=== PATIENT | male | born 1960 | race Asian ===

== ENCOUNTER 2016-11-30 11:54 | Inpatient (IN) | payer MEDICARE, MEDICAID ==
[~2016-11-30] VITALS: Ht 180.3 cm; Wt 79.5 kg
[2016-11-30 12:14] VITALS: Ht 180.3 cm; Wt 79.5 kg
[2016-11-30] MEDS ORDERED: VANCOMYCIN 1 GM (PMX) 250 ML IVPB STA (12:38)
[2016-11-30] MEDS ORDERED: ACETAMINOPHEN 325 MG TAB PO STA (12:38)
[2016-11-30] MEDS ORDERED: CEFEPIME 2GM/50 ML (PMX) 50 ML IVPB STA (12:38)
[2016-11-30] MEDS ORDERED: SODIUM CHLORIDE 0.9% 1L BAG IV* STA (12:38)
[2016-11-30] MEDS ORDERED: ALBU8.5H3 INH (12:56)
[2016-11-30] MEDS ORDERED: D-ME473S2 PO (12:56)
[2016-11-30] MEDS ORDERED: AZIT250T6 PO (12:57)
[2016-11-30] MEDS ORDERED: LENA2.5C PO (12:59)
[2016-11-30] MEDS ORDERED: FLUT16SP17 NASAL (13:00)
[2016-11-30 13:16] LABS: ADD SCAN DIFF NO
[2016-11-30] MEDS ORDERED: morphine 4 MG/ML VIAL IV STA (13:22)
[2016-11-30 13:23] LABS: HEMATOCRIT 45.5 % (42.0-52.0); HEMOGLOBIN 15.5 g/dl (14.0-18.0); MEAN CORPUSCULAR HEMOGLOBIN 33.5 pg (29.0-33.0); MEAN CORPUSCULAR HGB CONC 34.1 g/dl (32.0-37.0); MEAN CORPUSCULAR VOLUME 98.5 fl (82.0-101.0); MEAN PLATELET VOLUME 9.7 fl (7.4-10.4); PLATELET COUNT 236 10^3/UL (140-415); RED BLOOD COUNT 4.62 10^6/ul (4.70-6.10); RED CELL DISTRIBUTION WIDTH 12.8 % (11.5-14.5); WHITE BLOOD COUNT 6.8 10^3/ul (4.8-10.8)
[2016-11-30 13:24] LABS: AADO2 Arterial 50.5 mmHg (7.0-24.0); Allen Test ACCEPTAB; Arterial Base Excess -1.4 mmol/L (-3.0-3); Arterial COHb 0.4 % (0.0-3.0); Arterial Fraction of Oxyhgb 92.3 % (93.0-99.0); Arterial HCO3 21.4 mmol/L (22.0-26.0); Arterial MetHb 0.3 % (0.0-1.5); Arterial Total Hemglobin 15.3 g/dl (12.0-18.0); MODE ROOM AIR
[2016-11-30 13:31] LABS: ALBUMIN 4.7 g/dl (3.3-4.9); CHLORIDE 97 mmol/L (97-110)
[2016-11-30 13:32] LABS: POTASSIUM 3.8 mmol/L (3.5-5.1); SODIUM 137 mmol/L (135-144)
[2016-11-30 13:34] LABS: ALBUMIN/GLOBULIN RATIO 1.11; ALKALINE PHOSPHATASE 77 IU/L (42-121); ANION GAP 17 (8-16); ASPARTATE AMINO TRANSFERASE 47 IU/L (15-46); BILIRUBIN,INDIRECT 1.2 mg/dl (0-1.1); BILIRUBIN,TOTAL 1.2 mg/dl (0.2-1.3); BLOOD UREA NITROGEN 9 mg/dl (7-20); CARBON DIOXIDE 27 mmol/L (21-31); CREATININE 1.15 mg/dl (0.61-1.24); GLUCOSE 100 mg/dl (70-220); TOTAL PROTEIN 8.9 g/dl (6.1-8.1)
[2016-11-30 13:35] LABS: ALANINE AMINOTRANSFERASE 73 IU/L (13-69); CALCIUM 9.4 mg/dl (8.4-10.2)
[2016-11-30] MEDS ORDERED: ALBUTEROL 0.083% (NEB) 2.5 MG/3 ML AMP HHN STA ×2 (13:36→18:25)
[2016-11-30 13:38] LABS: INR 1.03; PARTIAL THROMBOPLASTIN TIME 30.8 Sec (25.0-35.0); PROTIME 13.5 Sec (12.2-14.2); PT RATIO 1.1
[2016-11-30 14:11] LABS: TROPONIN-I < 0.012 ng/ml (0.00-0.12)
[2016-11-30] MEDS ORDERED: SOD CHLORIDE 0.9% 100 ML ONE (14:15)
[2016-11-30] MEDS ORDERED: IODIXANOL LOCM 100 ML BTL ONE (14:15)
--- NOTE | 2016-11-30 14:17 | RADRPT ---
PROCEDURE: XR Chest. CLINICAL INDICATION: Cough TECHNIQUE: Chest AP portable. COMPARISON: No comparison available. FINDINGS: The mediastinal structures are unremarkable. The heart is normal in size and configuration. The pu lmonary vascularity is normal. There is mild bibasilar subsegmental atelectasis. No consolidation is identified. The pleural spaces are unremarkable. The axial skeleton is unremarkable. IMPRESSION: Mild bibasilar subsegmental atelectasis No consolidation or failure identified RPTAT: DB .Zac Diaz MD, MD Date Time Electronically viewed and signed by .Zac Diaz MD, on 11/30/2016 14:16 .B/
[2016-11-30 14:28] LABS: BASOPHIL # 0.1 10^3/ul (0.0-0.1); EOSINOPHILS # 0.1 10^3/ul (0.0-0.5); LYMPHOCYTES # 1.8 10^3/ul (0.8-2.9); MONOCYTE # 0.6 10^3/ul (0.3-0.9); NEUTROPHIL # 3.9 10^3/ul (1.6-7.5)
--- NOTE | 2016-11-30 14:36 | RADRPT ---
PROCEDURE: CTA Chest with contrast and with 3-D reconstructions CLINICAL INDICATION: eval for PE TECHNIQUE: The study was performed utilizing multidetector CT scanner. Direct spiral axial section s were obtained from the thoracic inlet to the upper abdomen with the use of intravenous contrast ma terial. Sagittal, coronal and 3-D reformations were obtained. The images were reviewed on a PACS wor kstation. DLP 586.30 mGycm CTDIvol 49.29, 15.95 mGy COMPARISON: No prior studies are available for comparison. FINDINGS: There are no pulmonary emboli. The lungs are clear. There is no pleural fluid. There is no pneumothorax. Heart size is within normal limits. There is no pericardial fluid. The aorta is within normal limi ts. There are no enlarged axillary or mediastinal lymph nodes. The visualized portions of the upper abdomen are unremarkable. Osseous and soft tissue structures are within normal limits. IMPRESSION: No CT evidence for pulmonary embolus. Clear lungs. RPTAT: EE Physician Eugenia Date Time Electronically viewed and signed by Physician Eugenia on 11/30/2016 14:36 /
[2016-11-30] MEDS ORDERED: ONDANSETRON 4 MG INJ IV PRN (15:00)
--- NOTE | 2016-11-30 15:33 | ERA ---
ER Documentation Chief Complaint Date/Time DATE: 11/30/16 TIME: 15:24 Chief Complaint Pt with fever, body ache, cough x 6 days. Hx of bone marrow CA. HPI 56-year-old male with a history of multiple myeloma sent by his primary care doctor, Dr. Mensah, for further evaluation, treatment and admission. Patient has had 6 days of generalized body aches, cough, shortness of breath, and generalized fatigue. He denies any associated chest pain. He has had fevers and chills that he has noticed for the past 2 days. He states he gets treatment for maintenance of his multiple myeloma every month. He denies any abdominal pain, diarrhea, vomiting, or dysuria. ROS All systems reviewed and are negative except as per history of present illness. Medications Home Meds Reported Medications Fluticasone Propionate* (Fluticasone Propionate* Nasal) 50 Mcg/Mumford - 16 Gm Mumford.susp, 1 SPRAY NASAL BID, #1 BOTTLE TO EACH NOSTRIL 11/30/16 Lenalidomide (REVLIMID) 2.5 Mg Capsule, 5 MG PO DAILY FOR 21 DAYS, CAP 11/30/16 Azithromycin* (Azithromycin*) 250 Mg Tablet, 250 MG PO DAILY, #4 TAB PER PT STARTED TX ON 11-28-16 11/30/16 Dextromethorphan Hb-Promethazine Hcl* (Promethazine DM* Syrup) 473 Ml Syrup, 5 ML PO Q6 Y for COUGH, ML 11/30/16 Albuterol Sulfate* (Proair HFA*) 8.5 Gm Hfa.aer.ad, 2 PUFF INH Q6H Y for WHEEZING AND SOB, #1 INHALER 11/30/16 Allergies Allergies: Coded Allergies: No Known Allergy (Unverified , 11/30/16) PMhx/Soc Medical and Surgical Hx: pt denies Surgical Hx Hx Miscellaneous Medical Probl: Yes (Multiple myeloma) Hx Alcohol Use: No Hx Substance Use: No Hx Tobacco Use: No Smoking Status: Current every day smoker FmHx Family History: No diabetes Physical Exam Vitals Vital Signs Date Time Temp Pulse Resp B/P Pulse Ox O2 Delivery O2 Flow Rate FiO2 11/30/16 13:54 95 21 11/30/16 13:18 115 24 142/99 98 Room Air 11/30/16 12:14 102.8 129 20 137/84 93 Physical Exam Const: Frequently coughing on exam, nontoxic appearing, well-developed and well- nourished Head: Atraumatic Eyes: Normal Conjunctiva, PERRLA, EOMI, no scleral icterus ENT: Normal External Ears, Nose and Mouth. Dry oral mucosa Neck: Full range of motion.. No JVD. No meningismus. Resp: Clear to auscultation bilaterally with diminished breath sounds at the bases, right greater than left Cardio: Tachycardia with regular rhythm, no murmurs, rubs, gallops Abd: Soft, non tender, non distended. Normal bowel sounds Skin: No petechiae or rashes, no ecchymoses Back: No midline or flank tenderness Ext: No cyanosis, or edema. Diffuse tenderness to palpation of extremities. Neur: Awake and alert and oriented 3, strength and sensations intact in all 4 extremities, cranial nerves intact Psych: Normal Mood and Affect Result Diagram: 11/30/16 1255 11/30/16 1255 Results 24 hrs Laboratory Tests Test 11/30/16 12:38 11/30/16 12:55 Blood Gas Specimen Source Blood arterial Arterial Blood Date Drawn 11/30/2016 1:15:55 PM Arterial Blood pH (Temp corrected) 7.455 Arterial Blood pCO2 (Temp correct) 31.1mmhg Arterial Blood pO2 (Temp corrected) 62.0mmHG Arterial Blood HCO3 21.4mmol/L Arterial Blood Base Excess -1.4mmol/L Arterial Blood Oxygen Saturation 93.0mmHG Prem Test ACCEPTAB Arterial Blood Gas Puncture Site Left Radial Arterial Blood Carboxyhemoglobin 0.4% Arterial Blood Methemoglobin 0.3% Blood Gas A-a O2 Differential 50.5mmHg Oxyhemoglobin Percent 92.3% Total Hemoglobin 15.3g/dl Blood Gas Temperature 37.0C Blood Gas Modality ROOM AIR FiO2 21.0% Blood Gas Notified Whom JLD Blood Gas Notified Time 11/30/2016 1:24:45 PM White Blood Count 6.810^3/ul Red Blood Count 4.6210^6/ul Hemoglobin 15.5g/dl Hematocrit 45.5% Mean Corpuscular Volume 98.5fl Mean Corpuscular Hemoglobin 33.5pg Mean Corpuscular Hemoglobin Concent 34.1g/dl Red Cell Distribution Width 12.8% Platelet Count 96906^3/UL Mean Platelet Volume 9.7fl Neutrophils % 58.0% Band Neutrophils % 4.0% Lymphocytes % 26.0% Monocytes % 9.0% Eosinophils % 1.0% Basophils % 2.0% Nucleated Red Blood Cells % /100WBC Neutrophils # 3.910^3/ul Lymphocytes # 1.810^3/ul Monocytes # 0.610^3/ul Eosinophils # 0.110^3/ul Basophils # 0.110^3/ul Nucleated Red Blood Cells # 10^3/ul Prothrombin Time 13.5Sec Prothrombin Time Ratio 1.1 INR International Normalized Ratio 1.03 Activated Partial Thromboplast Time 30.8Sec Sodium Level 137mmol/L Potassium Level 3.8mmol/L Chloride Level 97mmol/L Carbon Dioxide Level 27mmol/L Anion Gap 17 Blood Urea Nitrogen 9mg/dl Creatinine 1.15mg/dl Glucose Level 100mg/dl Lactic Acid Level 1.4mmol/L Calcium Level 9.4mg/dl Total Bilirubin 1.2mg/dl Direct Bilirubin 0.00mg/dl Indirect Bilirubin 1.2mg/dl Aspartate Amino Transf (AST/SGOT) 47IU/L Alanine Aminotransferase (ALT/SGPT) 73IU/L Alkaline Phosphatase 77IU/L Troponin I < 0.012ng/ml Total Protein 8.9g/dl Albumin 4.7g/dl Globulin 4.20g/dl Albumin/Globulin Ratio 1.11 Current Medications Medications (Trade) Dose Ordered Sig/Greg Route PRN Reason Start Time Stop Time Status Last Admin Dose Admin Sodium Chloride (NS) 2,810 ml BOLUS OVER 2 HOURS STAT IV* 11/30/16 12:38 11/30/16 12:40 DC 11/30/16 13:07 Acetaminophen 1000 mg 1,000 mg ONCE STAT PO 11/30/16 12:38 11/30/16 12:40 DC 11/30/16 13:07 Vancomycin HCl 250 ml @ 125 mls/hr ONCE STAT IVPB 11/30/16 12:38 11/30/16 14:37 DC 11/30/16 13:17 Cefepime HCl (Maxipime 2gm/50 ml (Pmx)) 50 ml @ 100 mls/hr ONCE STAT IVPB 11/30/16 12:38 11/30/16 13:07 DC 11/30/16 13:10 Morphine Sulfate (morphine) 4 mg ONCE STAT IV 11/30/16 13:22 11/30/16 13:23 DC 11/30/16 13:28 Albuterol (Proventil 0.083% (Neb)) 5 mg ONCE STAT HHN 11/30/16 13:36 11/30/16 13:37 DC 11/30/16 13:52 IV Flush 10 ml 10 ml STK-MED ONCE .ROUTE 11/30/16 14:15 11/30/16 14:16 DC 11/30/16 14:39 Sodium Chloride (NS) 100 ml @ ud STK-MED ONCE .ROUTE 11/30/16 14:15 11/30/16 14:16 DC 11/30/16 14:39 Iodixanol (Visipaque Locm) 100 ml STK-MED ONCE .ROUTE 11/30/16 14:15 11/30/16 14:16 DC 11/30/16 14:39 Ondansetron HCl (Zofran Inj) 4 mg BRIDGE ORDER PRN IV NAUSEA AND/OR VOMITING 11/30/16 15:00 12/01/16 14:59 Acetaminophen (Tylenol Tab) 650 mg ER BRIDGE PRN PO MILD PAIN/FEVER 11/30/16 15:00 12/01/16 14:59 Procedures/MDM EKG: Rate/Rhythm: Sinus tachycardia at 111 bpm QRS, ST, T-waves: No changes consistent w/ acute ischemia Impression: No evidence of ischemia or arrhythmia Chest x-ray shows bibasilar atelectasis without evidence of pneumonia or heart failure CT angiogram chest does not show any evidence of pulmonary embolism or other acute abnormalities Labs showed no significant abnormalities, urinalysis pending. ABG showed mild alkalosis with hypoxemia and increased A-a gradient. MDM: Patient is presenting with flulike symptoms. Vitals were notable for fever and tachycardia. IV fluids and broad-spectrum antibiotics, vancomycin and cefepime were started. There is no evidence of pulmonary embolism or pneumonia on his imaging. Source of infection is unclear at this time. He most likely has a bacterial bronchitis with minimal wheezing on reexamination. Albuterol 5 mg med neb treatment was given. Patient's infectious symptoms have not stabilized and the patient is at risk of rapid decompensation. The patient will be admitted for careful hydration, antibiotic therapy, and infectious source control. Severe Sepsis Assessment: Infectious Source: Bronchitis End organ damage indicated by: Hypoxemia Severe Sepsis Managment: Blood Cultures X 2 before broad spectrum antibiotics initiated within 3 hours of recognition. 30 ml/kg NS bolus Completed Initial Lactate: normal Repeat Lactate not indicated as initial < 2.0 Critical Care: Time: 35 minutes Treatments/Evaluations: Emergent fluid management, while maintaining close respiratory support. Immediate broad spectrum antibiotic therapy. Simultaneous assessment for possible sources in order to direct therapy. Consideration for invasive and chemical support to prevent respiratory or cardiac collapse. Septic Shock Assessment (1 hour post 30 ml/kg fluid bolus): Hypotension (SBP < 90 or 40 mmHg drop, MAP < 65): No Lactic acid > 4.0 No Accepting Care Team: Current data and ongoing care discussed. Time: Time of admission Primary Provider: Dr. Mensah Consulting: None Outstanding Data: Blood, UA, urinalysis and urine cultures Departure Diagnosis: Primary Impression: Influenza-like symptoms Additional Impressions: Hypoxemia Sepsis Qualified Code: A41.9 - Sepsis, due to unspecified organism Condition: Serious MARY RILEY MD November 30, 2016 15:33
[2016-11-30 16:03] LABS: ADD UMIC YES; URINE BILIRUBIN (Dip) NEGATIVE (NEGATIVE); URINE BLOOD (Dip) TRACE (NEGATIVE); URINE COLOR LT. YELLOW (YELLOW); URINE GLUCOSE (Dip) NEGATIVE (NEGATIVE); URINE KETONES (Dip) NEGATIVE (NEGATIVE); URINE LEUKOCYTE ESTERASE (Dip) NEGATIVE (NEGATIVE); URINE NITRITE (Dip) NEGATIVE (NEGATIVE); URINE TOTAL PROTEIN (Dip) NEGATIVE (NEGATIVE); URINE UROBILINOGEN (Dip) 0.2 E.U./dL (0.1-1.0)
[2016-11-30 16:11] LABS: SQUAMOUS EPITHELIAL CELL,UR RARE; URINE RBCS 0-2 /HPF (0)
[2016-11-30] MEDS: ACETAMINOPHEN 325 MG TAB PO PRN ×2 (17:27→19:47)
[2016-11-30] MEDS ORDERED: KETOROLAC 30 MG INJ IV STA (19:54)
[2016-11-30] MEDS ORDERED: METOCLOPRAMIDE 10 MG INJ IV ONE (20:00)
[2016-11-30] MEDS ORDERED: LORAZEPAM 2 MG INJ IV ONE (20:00)
[2016-11-30 21:05] VITALS: PULSE 116; TEMP 98.5
[2016-11-30 22:24] VITALS: BP 116/70; RESP 18
[2016-11-30] MEDS ORDERED: KETOROLAC 30 MG INJ IV PRN (22:30)
[2016-12-01] MEDS: GUAIFENESIN/DM 5ML CUP PO PRN (02:23)
[2016-12-01] MEDS: LEVALBUTEROL (NEB) 0.63 MG/3 ML AMP HHN PRN (02:47)
--- NOTE | 2016-12-01 03:44 | HP ---
DATE OF ADMISSION: 11/30/2016 CHIEF COMPLAINT: Cough, fever and shortness of breath. HISTORY OF PRESENT ILLNESS: The patient is a 56-year-old gentleman with a history of multiple myelo ma status post stem cell transplant at [facility] more than a year ago currently on Revlimid and is being followed by Dr. Cole as an outpatient. The patient also is status post radiation therapy at [facility] back in 2013. The patient is also status post systemic chemotherapy prior to radiation therapy for lower back pain. The patient came to ER because of cough, fever, and shortne ss of breath for the last 1 week. The patient did [facility] the day before and was given Zithromax and ProAir metered dose inhaler as well as cough medicine. The pat ient, however, continued to get sicker. The patient reported that he was getting more short of abelardo th. The patient did not have any chest pain. No reported sore throat. No reported abdominal pain, no reported vomiting or diarrhea. The patient did have a headache. No reported photophobia. No r eported any focal weakness. No reported vomiting or diarrhea. The patient reported his temperature at home was 103. The patient also felt generalized weakness. No reported dysuria or hematuria. T he patient's symptoms had been getting worse since the onset approximately 5 to 7 days ago. The pat ient denied back pain. No reported skin rash. No reported eyes or ear pain. No reported focal wea kness unremarkable. EMERGENCY ROOM COURSE: The patient was seen in the ER by Dr. Hu. The patient did have a tem perature of 102.8 upon arrival to ER with heart rate of 129. The patient, however, did not have any bandemia or leukocytosis and lactic acid level was 1.4. The patient had a CT chest pulmonary angio gram which was negative for PE or any acute pneumonia. The patient was diagnosed with acute bronchi tis and is being admitted for further evaluation and management. PAST MEDICAL HISTORY/PAST SURGICAL HISTORY: As stated above. SOCIAL HISTORY: No smoking or any significant alcohol abuse. No history of drug abuse. FAMILY HISTORY: Negative for the patient's condition. MEDICATIONS: The patient prior to admission was on Revlimid, azithromycin, cough medication recentl y as well was started on Fluticasone nasal spray and ProAir metered dose inhaler. PHYSICAL EXAMINATION: GENERAL: The patient is conscious, awake, alert. VITAL SIGNS: Upon arrival, temperature 102.8, pulse 109, respirations 20, blood pressure 137/84, O2 saturation 93% on room air. HEENT: Atraumatic, normocephalic. Conjunctivae and lids normal. Extraocular movements intact. Or opharynx clear. NECK: Supple. No mass or thyromegaly. CHEST: Fairly clear. No use of accessory muscles. CARDIOVASCULAR: Regular rate and rhythm. S1, S2 normal. Sinus tachycardia. ABDOMEN: Soft, nontender. No palpable mass. EXTREMITIES: No leg edema, no clubbing or cyanosis. SKIN: Without acute rash or ulcer. NEUROLOGIC: The patient is awake, alert, fairly oriented with no gross focal deficit. LYMPHATICS: Negative in neck and axilla. PSYCHIATRIC: No anxiety or depression. LABORATORY DATA: Sodium 137, potassium 3.8, BUN 9, creatinine 1.1, glucose 100, calcium 9.4, biliru bin 1.2, mainly indirect, AST 47, ALT 73, albumin 4.7. WBC 6.8, hemoglobin 15.5. IMPRESSION: 1. Acute sepsis due to acute bronchitis viral versus bacterial. The patient currently has a nonpro ductive cough and does have myalgia and headache. Due to immunocompromised state, will empirically start him on IV Rocephin and Zithromax. ID consult from Dr. Brock has been requested. The patien t will also be given breathing treatment and gastrointestinal prophylaxis with Pepcid and will be co ntinued on Revlimid once more information is available about dosage. The patient was started on Juany enox for DVT prophylaxis and Pepcid for GI prophylaxis. We will also use Toradol for myalgia and he adache. Blood culture and urine culture have been sent from ER. The patient in the ER in fact rece ived IV vancomycin and cefepime. 2. Multiple myeloma. Will continue Revlimid once more information is available. The patient has b een requested to bring medication at home. I spoke with Dr. Neelam Cole who has been following him from oncology standpoint as an outpatient. The patient in the ER did have blood gases done which r evealed pH of 7.45, pCO2 31.1 and pO2 of 62 indicating hypoxemia most likely related to sepsis due t o acute bronchitis. 3. Mildly elevated liver enzymes and bilirubin, will continue to monitor at this time. The patient does not have any GI symptom. I would repeat comprehensive metabolic panel tomorrow and if patient has worsening of his liver enzymes. We will obtain a GI consultation also. The plan of care discu ssed with the nursing staff and the ER physician, Dr. Sharon Hu. Dictated By: BEV KOEHLER/BASILIO Conf#: [id number] DID#: [id number]
[2016-12-01 05:43] LABS: ADD SCAN DIFF NO
[2016-12-01 06:18] LABS: BASOPHILS % 0.4 % (0.0-2.0); EOSINOPHILS % 0.2 % (0.0-7.0); LYMPHOCYTES # 1.1 10^3/ul (0.8-2.9); LYMPHOCYTES % 21.6 % (15.0-51.0); MEAN CORPUSCULAR HEMOGLOBIN 32.5 pg (29.0-33.0); MEAN CORPUSCULAR HGB CONC 32.5 g/dl (32.0-37.0); MEAN PLATELET VOLUME 9.9 fl (7.4-10.4); MONOCYTE # 0.4 10^3/ul (0.3-0.9); MONOCYTES % 8.5 % (0.0-11.0); NEUTROPHIL # 3.6 10^3/ul (1.6-7.5); NEUTROPHILS % 68.9 % (39.0-77.0); PLATELET COUNT 166 10^3/UL (140-415); RED CELL DISTRIBUTION WIDTH 13.1 % (11.5-14.5); WHITE BLOOD COUNT 5.2 10^3/ul (4.8-10.8)
[2016-12-01 06:24] LABS: ALBUMIN 3.6 g/dl (3.3-4.9); POTASSIUM 3.9 mmol/L (3.5-5.1)
[2016-12-01 06:26] LABS: ALBUMIN/GLOBULIN RATIO 1.05; BILIRUBIN,INDIRECT 1.3 mg/dl (0-1.1); BILIRUBIN,TOTAL 1.3 mg/dl (0.2-1.3); CREATININE 0.97 mg/dl (0.61-1.24)
[2016-12-01 06:27] LABS: CALCIUM 8.2 mg/dl (8.4-10.2)
[2016-12-01 07:30] VITALS: BP 134/84; RESP 18
[2016-12-01] MEDS ORDERED: AZITHROMYCIN 250 MG TAB PO SCH (09:00)
[2016-12-01] MEDS: ENOXAPARIN 40 MG/0.4 ML SYG SC SCH (09:16)
[2016-12-01] MEDS: ACETAMINOPHEN 500 MG TAB PO PRN ×2 (09:17→14:55)
[2016-12-01] MEDS: FAMOTIDINE 20 MG TAB PO SCH ×2 (09:18→21:45)
[2016-12-01] MEDS ORDERED: CEFTRIAXONE 1 GM/50 ML (PMX) 50 ML IVPB SCH (10:00)
--- NOTE | 2016-12-01 13:46 | CONS ---
Date/Time of Note Date/Time of Note DATE: 12/01/16 TIME: 13:37 Assessment/Plan Assessment/Plan Chief Complaint/Hosp Course assessment/impression - sepsis due to bronchitis or superimposed bacterial pneumonia - sick contact prior to the onset of illness suggests viral origin - STEIN possibly secondary to viral syndrome - immunocompromised state due to MM plus lenalidomide - MM s/p stem cell transplant at [facility] s/p chemotherapy, and radiation therapy for the lower back. recommendations - ordered: nasopharyngeal swab for influenza PCR, respiratory virus PCR, respiratory culture, legionella antigen, mycoplasma serology TB screen, crypto antigen, cocci serology - monitor STEIN - I recommend: IV vancomycin, cefepime, levofloxacin, and oseltamivir. Oseltamivir to continue until influenza is ruled out by PCR (rapid test was negative) - droplet precautions until respiratory viruses are ruled out by PCR management d/w Pt, his and RN thank you Problems: Consultation Date/Type/Reason Admit Date/Time November 30, 2016 at 14:40 Date of Consultation: December 01, 2016 Type of Consultation: ID Reason for Consultation sepsis Hx of Present Illness This is a 56 yo male with MM s/p stem cell transplant at [facility] s/p chemotherapy, and radiation therapy for the lower back. Pt is currently on lenalidomide. Several days ago Pt developed sudden onset myalgia, productive cough and temp as high as 103F. Pt was given a trial of azithromcyin without improvement. As a result, Pt was advised to go to ER. His chest CT and CXR did not show PE or infiltrate. Pt was started on empiric ceftriaxone and zithromycin. Pt was born and raised in [place]. He does not recall TB test. Pt received influenza vaccine in 2016. Pt admits sick contact with a family member who had an influenza-like illness prior to the onset of his current illness. Dr. Mensah requested ID consultation on this Pt. Constitutional: febrile, poor po Eyes: no complaints ENT: no complaints Respiratory: cough, shortness of breath, sputum, No pleuritic pain, No wheezing Cardiovascular: no complaints Gastrointestinal: no complaints Genitourinary: no complaints Musculoskeletal: bone/joint pain Skin: no complaints Neurologic: headache Endocrine: no complaints Lymphatic: no complaints Past Medical History Medical History: other (MM) Social History Alcohol Use: none Smoking Status: Unknown if ever smoked Drug Use: none Exam/Review of Systems Vital Signs Vitals Vital Signs Date Time Temp Pulse Resp B/P Pulse Ox O2 Delivery O2 Flow Rate FiO2 12/01/16 09:20 100.4 12/01/16 09:04 2.0 12/01/16 07:30 102 18 134/84 97 12/01/16 02:48 Nasal Cannula 11/30/16 18:53 21 Intake and Output 11/30/16 11/30/16 12/01/16 15:00 23:00 07:00 Intake Total 580 ml Balance 580 ml Exam Constitutional: distress Psych: nl mood/affect, no complaints Head: atraumatic, normocephalic Eyes: nl conjunctiva, nl lids ENMT: nl external ears & nose, nl nasal mucosa & septum Neck: non-tender, supple Respiratory: clear to auscultation, normal air movement Cardiovascular: nl pulses, regular rate and rhythm Gastrointestinal: non-tender, soft Musculoskeletal: nl extremities to inspection Extremities: normal pulses Neurological: ACCOUNT RECEIVABLE ASSOCIATE II-XII intact, nl mental status, nl speech, nl strength Skin: nl turgor Results Result Diagram: 12/01/16 04512/01/16 045 Results 24 hrs Laboratory Tests Test 11/30/16 15:26 11/30/16 16:45 11/30/16 18:45 12/01/16 04:51 Urine Color LT. YELLOW Urine Clarity CLEAR Urine pH 6.0 Urine Specific [place] <=1.005 L Urine Ketones NEGATIVE Urine Nitrite NEGATIVE Urine Bilirubin NEGATIVE Urine Urobilinogen 0.2 E.U./dL Urine Leukocyte Esterase NEGATIVE Urine Microscopic RBC 0-2 Urine Microscopic WBC 0-2 Urine Squamous Epithelial Cells RARE Urine Hemoglobin TRACE Urine Glucose NEGATIVE Urine Total Protein NEGATIVE Lactic Acid Level 1.5 1.6 White Blood Count 5.2 # Red Blood Count 4.00 L Hemoglobin 13.0 L Hematocrit 40.0 L Mean Corpuscular Volume 100.0 Mean Corpuscular Hemoglobin 32.5 Mean Corpuscular Hemoglobin Concent 32.5 Red Cell Distribution Width 13.1 Platelet Count 166 # Mean Platelet Volume 9.9 Neutrophils % 68.9 Lymphocytes % 21.6 Monocytes % 8.5 Eosinophils % 0.2 Basophils % 0.4 Nucleated Red Blood Cells % 0.0 Neutrophils # 3.6 Lymphocytes # 1.1 Monocytes # 0.4 Eosinophils # 0.0 Basophils # 0.0 Nucleated Red Blood Cells # 0.0 Sodium Level 139 Potassium Level 3.9 Chloride Level 103 Carbon Dioxide Level 26 Anion Gap 14 Blood Urea Nitrogen 10 Creatinine 0.97 Glucose Level 138 Calcium Level 8.2 L Total Bilirubin 1.3 Direct Bilirubin 0.00 Indirect Bilirubin 1.3 H Aspartate Amino Transf (AST/SGOT) 31 Alanine Aminotransferase (ALT/SGPT) 58 Alkaline Phosphatase 51 Total Protein 7.0 # Albumin 3.6 # Globulin 3.40 H Albumin/Globulin Ratio 1.05 Medications Medications Current Medications Ceftriaxone Sodium (Rocephin) 50 ml @ 100 mls/hr Q24H IVPB Last administered on 12/01/16 09:18; Admin Dose 100 MLS/HR; Start 12/01/16 at 10:00 Azithromycin (Zithromax) 500 mg DAILY PO Last administered on 12/01/16 09:18; Admin Dose 500 MG; Start 12/01/16 at 09:00 Acetaminophen (Tylenol Tab) 500 mg Q6H PRN PO PAIN AND OR ELEVATED TEMP Last administered on 12/01/16 09:17; Admin Dose 500 MG; Start 11/30/16 at 22:30 Ketorolac Tromethamine (Toradol) 30 mg Q6H PRN IV PAIN; Start 11/30/16 at 22:30 ; Stop 12/03/16 at 22:29 Famotidine (Pepcid) 20 mg BID PO Last administered on 12/01/16 09:18; Admin Dose 20 MG; Start 12/01/16 at 09:00 Enoxaparin Sodium (Lovenox) 40 mg DAILY SC Last administered on 12/01/16 09:16 ; Admin Dose 40 MG; Start 12/01/16 at 09:00 Guaifenesin/ Dextromethorphan (Robitussin Dm Liquid Cup) 5 ml Q4H PRN PO COUGH Last administered on 12/01/16 02:23; Admin Dose 5 ML; Start 11/30/16 at 22:30 Patient Own Medication 1 ea DAILY PO ; Start 12/01/16 at 14:30; Stop 12/11/16 at 09:01 SILVIANO AREVALO M.D. December 01, 2016 13:46
[2016-12-01] MEDS ORDERED: VANCOMYCIN IV PER PHARMACY XX SCH (14:00)
[2016-12-01] MEDS: LEVOFLOXACIN 500MG/D5W (PMX) 100 ML IVPB SCH (14:27)
[2016-12-01] MEDS: LENALIDOMIDE PO SCH (14:55)
--- NOTE | 2016-12-01 15:14 | CONS ---
Date/Time of Note Date/Time of Note DATE: 12/01/16 TIME: 14:17 Assessment/Plan Assessment/Plan Chief Complaint/Hosp Course 56 yo male with IgG kappa multiple myeloma s/p auto SCT in 04/2014 currently on maintenance Revlimid 5 mg q day who now presents with what appears to be an acute viral illness. Last SPEP done 09/2016 does not reveal evidence of monoclonal gammopathy and [place]/ Lambda light chains were all within normal limits. Pt is now admitted with sepsis secondary to bronchial infection. Patient is immunocompromised from his underlying multiple myeloma. # Sepsis -management per ID. follow up serologies ordered -cont broad spectrum antibiotics / antiviral therapy including IV vancomycin, cefepime, levofloxacin, and oseltamivir # Multiple Myeloma -last myeloma labs drawn 1 month ago did not reveal evidence of active disease -once patient is discharged will redraw the myeloma labs -can hold Revlimid while patient is hospitalized and plan to restart as an outpatient Approximately 40 min were spent at patient's bedside and in coordination of his care Problems: Consultation Date/Type/Reason Admit Date/Time November 30, 2016 at 14:40 Date of Consultation: December 01, 2016 Type of Consultation: hematology Reason for Consultation history of multiple myeloma Referring Provider: BEV SPARKS MD Hx of Present Illness 56 yo male with history of IgG kappa multiple myeloma that was originally diagnosed in [place]. Pt initiated therapy in the [place] in 03/2013 when he received Velcade. Cytoxan, Decadron. Of note he also received radiation to the spine in 2013.He then went on to undergo and autologous stem cell transplant in 04/2014 at [facility] with Dr. Bee. Pt has since been on maintenance Revlimid 5mg q day 21 days on and 7 days off. He was last seen on our office on October 05, 2016 and is currently undergoing treatment with Zometa q 3 mo for bone disease. His last Zometa was given on 10/15/16. He now presents with myalgias, couth and fevers to 103. Thus far there is no evidence of PE nor pneumonia. Pt was started on empiric ceftriaxone and azithromycin. Pt was born and raised in [place]. He does not recall TB test. Pt received influenza vaccine in 2016. Pt does endorse sick contact with a family member prior to the onset of his current illness. Respiratory: cough Gastrointestinal: decreased appetite, nausea Genitourinary: no complaints Musculoskeletal: back pain, bone/joint pain Skin: no complaints Neurologic: no complaints Endocrine: no complaints Past Medical History multiple myeloma spine mets Family History Significant Family History: no pertinent family hx Social History Smoking Status: Never smoker Drug Use: none Exam/Review of Systems Vital Signs Vitals Vital Signs Date Time Temp Pulse Resp B/P Pulse Ox O2 Delivery O2 Flow Rate FiO2 12/01/16 09:20 100.4 12/01/16 09:04 2.0 12/01/16 07:30 102 18 134/84 97 12/01/16 02:48 Nasal Cannula 11/30/16 18:53 21 Intake and Output 11/30/16 11/30/16 12/01/16 15:00 23:00 07:00 Intake Total 580 ml Balance 580 ml Exam Constitutional: alert, oriented Psych: no complaints Head: atraumatic, normocephalic Eyes: nl conjunctiva ENMT: nl external ears & nose Neck: non-tender, supple Respiratory: clear to auscultation, normal air movement Cardiovascular: regular rate and rhythm Gastrointestinal: soft Musculoskeletal: nl extremities to inspection Extremities: calf tenderness Results Result Diagram: 12/01/16 0451 12/01/16 0451 Results 24 hrs Laboratory Tests Test 11/30/16 15:26 11/30/16 16:45 11/30/16 18:45 12/01/16 04:51 Urine Color LT. YELLOW Urine Clarity CLEAR Urine pH 6.0 Urine Specific [place] <=1.005 L Urine Ketones NEGATIVE Urine Nitrite NEGATIVE Urine Bilirubin NEGATIVE Urine Urobilinogen 0.2 E.U./dL Urine Leukocyte Esterase NEGATIVE Urine Microscopic RBC 0-2 Urine Microscopic WBC 0-2 Urine Squamous Epithelial Cells RARE Urine Hemoglobin TRACE Urine Glucose NEGATIVE Urine Total Protein NEGATIVE Lactic Acid Level 1.5 1.6 White Blood Count 5.2 # Red Blood Count 4.00 L Hemoglobin 13.0 L Hematocrit 40.0 L Mean Corpuscular Volume 100.0 Mean Corpuscular Hemoglobin 32.5 Mean Corpuscular Hemoglobin Concent 32.5 Red Cell Distribution Width 13.1 Platelet Count 166 # Mean Platelet Volume 9.9 Neutrophils % 68.9 Lymphocytes % 21.6 Monocytes % 8.5 Eosinophils % 0.2 Basophils % 0.4 Nucleated Red Blood Cells % 0.0 Neutrophils # 3.6 Lymphocytes # 1.1 Monocytes # 0.4 Eosinophils # 0.0 Basophils # 0.0 Nucleated Red Blood Cells # 0.0 Sodium Level 139 Potassium Level 3.9 Chloride Level 103 Carbon Dioxide Level 26 Anion Gap 14 Blood Urea Nitrogen 10 Creatinine 0.97 Glucose Level 138 Calcium Level 8.2 L Total Bilirubin 1.3 Direct Bilirubin 0.00 Indirect Bilirubin 1.3 H Aspartate Amino Transf (AST/SGOT) 31 Alanine Aminotransferase (ALT/SGPT) 58 Alkaline Phosphatase 51 Total Protein 7.0 # Albumin 3.6 # Globulin 3.40 H Albumin/Globulin Ratio 1.05 Medications Medications Current Medications Acetaminophen (Tylenol Tab) 500 mg Q6H PRN PO PAIN AND OR ELEVATED TEMP Last administered on 12/01/16 09:17; Admin Dose 500 MG; Start 11/30/16 at 22:30 Ketorolac Tromethamine (Toradol) 30 mg Q6H PRN IV PAIN; Start 11/30/16 at 22:30 ; Stop 12/03/16 at 22:29 Famotidine (Pepcid) 20 mg BID PO Last administered on 12/01/16 09:18; Admin Dose 20 MG; Start 12/01/16 at 09:00 Enoxaparin Sodium (Lovenox) 40 mg DAILY SC Last administered on 12/01/16 09:16 ; Admin Dose 40 MG; Start 12/01/16 at 09:00 Guaifenesin/ Dextromethorphan (Robitussin Dm Liquid Cup) 5 ml Q4H PRN PO COUGH Last administered on 12/01/16 02:23; Admin Dose 5 ML; Start 11/30/16 at 22:30 Patient Own Medication 1 ea 1 ea DAILY PO ; Start 12/01/16 at 14:30; Stop at 09:01 Cefepime HCl 50 ml @ 100 mls/hr Q12 IVPB ; Start 12/01/16 at 21:00 Levofloxacin/ Dextrose (Levaquin 500mg/ D5W 100 ml (Pmx)) 100 ml @ 100 mls/hr Q24H IVPB ; Start 12/01/16 at 14:00 Oseltamivir Phosphate 75 mg 75 mg BID PO ; Start 12/01/16 at 21:00; Stop 12/06/16 at 20:59 Vancomycin HCl 1.5 gm/Sodium Chloride 250 ml @ 83.333 mls/ hr ONCE ONCE IVPB ; Start 12/01/16 at 16:00; Stop 12/01/16 at 18:59 Vancomycin HCl (Vancocin) 250 ml @ 125 mls/hr Q12H IVPB ; Start 12/02/16 at 04: 00 JENY MCKEON M.D. December 01, 2016 14:30
[2016-12-01] MEDS ORDERED: VANCOMYCIN 1.5 GM in SOD CHLORIDE 0.9% 250 ML IVPB ONE (16:00)
[2016-12-01] MEDS: ASPIRIN (EC) 81 MG TAB PO SCH (18:10)
--- NOTE | 2016-12-01 18:14 | PN ---
Date/Time of Note Date/Time of Note DATE: 12/01/16 TIME: 18:06 Assessment/Plan VTE Prophylaxis VTE Prophylaxis Intervention: SCD's Lines/Catheters IV [facility]ter [facility]from [facility] [place] Assessment/Plan Chief Complaint/Hosp Course Assessment/Plan - Sepsis secondary to bronchitis, continue broad-spectrum antibiotics and and Tamiflu. Dr. Maher is following an infection disease consultation. - Acute bronchitis, continue breathing treatment oxygen supplementation. - Multiple myeloma, s/p stem cell transplant at [facility] s/p chemotherapy, and radiation therapy for the lower back. Patient is followed by Dr. Cole in hematology consultation. Further recommendations based on clinical course. Plan of care discussed with Dr. Mensah. Problems: Subjective 24 Hr Interval Summary Free Text/Dictation Patient's complains of headache, complaints of dry cough, stated that he feels better to compare to condition on admission, continues to have low-grade fever. Exam/Review of Systems Vital Signs Vitals Vital Signs Date Time Temp Pulse Resp B/P Pulse Ox O2 Delivery O2 Flow Rate FiO2 12/01/16 13:00 Simple Mask 2.0 12/01/16 09:50 98.5 12/01/16 07:30 102 18 134/84 97 11/30/16 18:53 21 Intake and Output 11/30/16 11/30/16 12/01/16 15:00 23:00 07:00 Intake Total 580 ml Balance 580 ml Exam Constitutional: alert, oriented Psych: no complaints Head: atraumatic, normocephalic Eyes: nl conjunctiva ENMT: nl external ears & nose Neck: non-tender Respiratory: clear to auscultation, normal air movement Cardiovascular: nl pulses, regular rate and rhythm Gastrointestinal: non-tender, soft Musculoskeletal: nl extremities to inspection Extremities: normal pulses Neurological: [employer] CHEMIST II-XII intact Results Result Diagram: 12/01/16 0451 12/01/16 0451 Results 24 hrs Laboratory Tests Test 11/30/16 18:45 12/01/16 04:51 Lactic Acid Level 1.6 White Blood Count 5.2 # Red Blood Count 4.00 L Hemoglobin 13.0 L Hematocrit 40.0 L Mean Corpuscular Volume 100.0 Mean Corpuscular Hemoglobin 32.5 Mean Corpuscular Hemoglobin Concent 32.5 Red Cell Distribution Width 13.1 Platelet Count 166 # Mean Platelet Volume 9.9 Neutrophils % 68.9 Lymphocytes % 21.6 Monocytes % 8.5 Eosinophils % 0.2 Basophils % 0.4 Nucleated Red Blood Cells % 0.0 Neutrophils # 3.6 Lymphocytes # 1.1 Monocytes # 0.4 Eosinophils # 0.0 Basophils # 0.0 Nucleated Red Blood Cells # 0.0 Sodium Level 139 Potassium Level 3.9 Chloride Level 103 Carbon Dioxide Level 26 Anion Gap 14 Blood Urea Nitrogen 10 Creatinine 0.97 Glucose Level 138 Calcium Level 8.2 L Total Bilirubin 1.3 Direct Bilirubin 0.00 Indirect Bilirubin 1.3 H Aspartate Amino Transf (AST/SGOT) 31 Alanine Aminotransferase (ALT/SGPT) 58 Alkaline Phosphatase 51 Total Protein 7.0 # Albumin 3.6 # Globulin 3.40 H Albumin/Globulin Ratio 1.05 Medications Medications Current Medications Acetaminophen (Tylenol Tab) 500 mg Q6H PRN PO PAIN AND OR ELEVATED TEMP Last administered on 12/01/16 14:55; Admin Dose 500 MG; Start 11/30/16 at 22:30 Ketorolac Tromethamine (Toradol) 30 mg Q6H PRN IV PAIN; Start 11/30/16 at 22:30 ; Stop 12/03/16 at 22:29 Famotidine (Pepcid) 20 mg BID PO Last administered on 12/01/16 09:18; Admin Dose 20 MG; Start 12/01/16 at 09:00 Enoxaparin Sodium (Lovenox) 40 mg DAILY SC Last administered on 12/01/16 09:16 ; Admin Dose 40 MG; Start 12/01/16 at 09:00 Guaifenesin/ Dextromethorphan (Robitussin Dm Liquid Cup) 5 ml Q4H PRN PO COUGH Last administered on 12/01/16 02:23; Admin Dose 5 ML; Start 11/30/16 at 22:30 Patient Own Medication 1 ea 1 ea DAILY PO Last administered on 12/01/16 14:55; Admin Dose 1 EA; Start 12/01/16 at 14:30; Stop 12/11/16 at 09:01 Cefepime HCl 50 ml @ 100 mls/hr Q12 IVPB ; Start 12/01/16 at 21:00 Levofloxacin/ Dextrose (Levaquin 500mg/ D5W 100 ml (Pmx)) 100 ml @ 100 mls/hr Q24H IVPB Last administered on 12/01/16 14:27; Admin Dose 100 MLS/HR; Start 12/01/16 at 14:00 Oseltamivir Phosphate 75 mg 75 mg BID PO ; Start 12/01/16 at 21:00; Stop 12/06/16 at 20:59 Vancomycin HCl 1.5 gm/Sodium Chloride 250 ml @ 83.333 mls/ hr ONCE ONCE IVPB Last administered on 12/01/16 16:22; Admin Dose 83.333 MLS/HR; Start 12/01/16 at 16:00; Stop 12/01/16 at 18:59 Vancomycin HCl (Vancocin) 250 ml @ 125 mls/hr Q12H IVPB ; Start 12/02/16 at 04: 00 Aspirin (Halfprin) 81 mg DAILY PO ; Start 12/01/16 at 18:00 ASAF HARKINS December 01, 2016 18:14
[2016-12-01 20:15] VITALS: BP 120/71; RESP 21
[2016-12-01] MEDS: OSELTAMIVIR 75 MG CAP PO SCH (21:45)
[2016-12-01] MEDS: CEFEPIME 2GM/50 ML (PMX) 50 ML IVPB SCH (21:46)
[2016-12-01] MEDS ORDERED: ZOLPIDEM 5 MG TAB PO PRN (22:00)
[2016-12-02] MEDS: VANCOMYCIN 1 GM in NS 250 ML IVPB SCH ×2 (04:18→16:24)
[2016-12-02] MEDS: GUAIFENESIN/DM 5ML CUP PO PRN ×2 (04:24→10:32)
[2016-12-02 05:47] LABS: ADD SCAN DIFF NO
[2016-12-02 06:09] LABS: BASOPHIL # 0.1 10^3/ul (0.0-0.1); BASOPHILS % 1.1 % (0.0-2.0); EOSINOPHILS # 0.1 10^3/ul (0.0-0.5); EOSINOPHILS % 3.1 % (0.0-7.0); HEMATOCRIT 39.9 % (42.0-52.0); HEMOGLOBIN 13.2 g/dl (14.0-18.0); LYMPHOCYTES # 1.8 10^3/ul (0.8-2.9); LYMPHOCYTES % 39.3 % (15.0-51.0); MEAN CORPUSCULAR HEMOGLOBIN 32.6 pg (29.0-33.0); MEAN CORPUSCULAR HGB CONC 33.1 g/dl (32.0-37.0); MEAN CORPUSCULAR VOLUME 98.5 fl (82.0-101.0); MONOCYTE # 0.5 10^3/ul (0.3-0.9); MONOCYTES % 11.5 % (0.0-11.0); NEUTROPHILS % 44.8 % (39.0-77.0); PLATELET COUNT 176 10^3/UL (140-415); RED BLOOD COUNT 4.05 10^6/ul (4.70-6.10); WHITE BLOOD COUNT 4.5 10^3/ul (4.8-10.8)
[2016-12-02 06:16] LABS: CREATININE 0.87 mg/dl (0.61-1.24)
[2016-12-02 06:17] LABS: CALCIUM 8.7 mg/dl (8.4-10.2)
[2016-12-02 08:16] VITALS: BP 116/70; RESP 20
[2016-12-02] MEDS: CEFEPIME 2GM/50 ML (PMX) 50 ML IVPB SCH ×2 (08:44→21:26)
[2016-12-02] MEDS: OSELTAMIVIR 75 MG CAP PO SCH ×2 (08:44→21:26)
[2016-12-02] MEDS: LENALIDOMIDE PO SCH (08:45)
[2016-12-02] MEDS: ENOXAPARIN 40 MG/0.4 ML SYG SC SCH (08:45)
[2016-12-02] MEDS: ASPIRIN (EC) 81 MG TAB PO SCH (08:45)
[2016-12-02] MEDS: FAMOTIDINE 20 MG TAB PO SCH ×2 (08:45→21:26)
[2016-12-02] MEDS: LEVALBUTEROL (NEB) 0.63 MG/3 ML AMP HHN PRN ×3 (09:05→22:48)
[2016-12-02] MEDS: METHYLPREDNISOLONE 40 MG INJ IV SCH (13:36)
[2016-12-02] MEDS: LEVOFLOXACIN 500MG/D5W (PMX) 100 ML IVPB SCH (13:36)
--- NOTE | 2016-12-02 17:28 | CONS ---
Date/Time of Note Date/Time of Note DATE: 12/02/16 TIME: 17:27 Assessment/Plan Assessment/Plan Chief Complaint/Hosp Course 56 yo male with IgG kappa multiple myeloma s/p auto SCT in 04/2014 currently on maintenance Revlimid 5 mg q day who now presents with what appears to be an acute viral illness. Last SPEP done 09/2016 does not reveal evidence of monoclonal gammopathy and [place]/ Lambda light chains were all within normal limits. Pt is now admitted with sepsis secondary to bronchial infection. Patient is immunocompromised from his underlying multiple myeloma. # Sepsis, Tm 99.5 today at 3 p.m. -management per ID. follow up serologies ordered -cont broad spectrum antibiotics / antiviral therapy including IV vancomycin, cefepime, levofloxacin, and oseltamivir # Multiple Myeloma -last myeloma labs drawn 1 month ago did not reveal evidence of active disease -once patient is discharged will redraw the myeloma labs -can hold Revlimid while patient is hospitalized and plan to restart as an outpatient Problems: Consultation Date/Type/Reason Admit Date/Time November 30, 2016 at 14:40 Initial Consult Date 12/01/16 Type of Consultation: Hematology Referring Provider: BEV SPARKS MD 24 HR Interval Summary Free Text/Dictation Patient states breathing is better, no fevers. Exam/Review of Systems Vital Signs Vitals Vital Signs Date Time Temp Pulse Resp B/P Pulse Ox O2 Delivery O2 Flow Rate FiO2 12/02/16 16:27 95 20 Nasal Cannula 2.0 12/02/16 15:13 99.5 12/02/16 08:16 116/70 94 11/30/16 18:53 21 Intake and Output 12/01/16 12/01/16 12/02/16 15:00 23:00 07:00 Intake Total 50 ml 1040 ml 730 ml Output Total 680 ml Balance 50 ml 1040 ml 50 ml Exam Constitutional: alert, oriented Psych: no complaints Head: atraumatic, normocephalic Eyes: nl conjunctiva ENMT: nl external ears & nose Neck: non-tender, supple Respiratory: faint expiratory wheezing Cardiovascular: regular rate and rhythm Gastrointestinal: soft Musculoskeletal: nl extremities to inspection Extremities: calf tenderness Results Result Diagram: 12/02/16 0530 12/02/16 0530 Results 24 hrs Laboratory Tests Test 12/02/16 05:30 White Blood Count 4.5 L Red Blood Count 4.05 L Hemoglobin 13.2 L Hematocrit 39.9 L Mean Corpuscular Volume 98.5 Mean Corpuscular Hemoglobin 32.6 Mean Corpuscular Hemoglobin Concent 33.1 Red Cell Distribution Width 13.0 Platelet Count 176 Mean Platelet Volume 10.0 Neutrophils % 44.8 Lymphocytes % 39.3 Monocytes % 11.5 H Eosinophils % 3.1 Basophils % 1.1 Nucleated Red Blood Cells % 0.0 Neutrophils # 2.0 Lymphocytes # 1.8 Monocytes # 0.5 Eosinophils # 0.1 Basophils # 0.1 Nucleated Red Blood Cells # 0.0 Sodium Level 140 Potassium Level 4.0 Chloride Level 105 Carbon Dioxide Level 25 Anion Gap 14 Blood Urea Nitrogen 8 Creatinine 0.87 Glucose Level 100 Calcium Level 8.7 Medications Medications Current Medications Acetaminophen (Tylenol Tab) 500 mg Q6H PRN PO PAIN AND OR ELEVATED TEMP Last administered on 12/01/16 14:55; Admin Dose 500 MG; Start 11/30/16 at 22:30 Ketorolac Tromethamine (Toradol) 30 mg Q6H PRN IV PAIN; Start 11/30/16 at 22:30 ; Stop 12/03/16 at 22:29 Famotidine (Pepcid) 20 mg BID PO Last administered on 12/02/16 08:45; Admin Dose 20 MG; Start 12/01/16 at 09:00 Enoxaparin Sodium (Lovenox) 40 mg DAILY SC Last administered on 12/02/16 08:45 ; Admin Dose 40 MG; Start 12/01/16 at 09:00 Guaifenesin/ Dextromethorphan (Robitussin Dm Liquid Cup) 5 ml Q4H PRN PO COUGH Last administered on 12/02/16 10:32; Admin Dose 5 ML; Start 11/30/16 at 22:30 Patient Own Medication 1 ea 1 ea DAILY PO Last administered on 12/02/16 08:45; Admin Dose 1 EA; Start 12/01/16 at 14:30; Stop 12/11/16 at 09:01 Cefepime HCl 50 ml @ 100 mls/hr Q12 IVPB Last administered on 12/02/16 08:44; Admin Dose 100 MLS/HR; Start 12/01/16 at 21:00 Levofloxacin/ Dextrose (Levaquin 500mg/ D5W 100 ml (Pmx)) 100 ml @ 100 mls/hr Q24H IVPB Last administered on 12/02/16 13:36; Admin Dose 100 MLS/HR; Start 12/01/16 at 14:00 Oseltamivir Phosphate 75 mg 75 mg BID PO Last administered on 12/02/16 08:44; Admin Dose 75 MG; Start 12/01/16 at 21:00; Stop 12/06/16 at 20:59 Vancomycin HCl (Vancocin) 250 ml @ 125 mls/hr Q12H IVPB Last administered on 16:24; Admin Dose 125 MLS/HR; Start 12/02/16 at 04:00 Aspirin (Halfprin) 81 mg DAILY PO Last administered on 12/02/16 08:45; Admin Dose 81 MG; Start 12/01/16 at 18:00 Zolpidem Tartrate (Ambien) 5 mg HS PRN PO INSOMNIA; Start 12/01/16 at 22:00 Methylprednisolone Sodium Succinate (Solu-Medrol) 40 mg QAM IV Last administered on 12/02/16 13:36; Admin Dose 40 MG; Start 12/02/16 at 13:00 Miscellaneous Information (*Rx Drug Level Order Reminder*) VANCOMYCIN TROUGH 12/03 AT 0300 ONCE ONCE XX ; Start 12/03/16 at 03:00; Stop 12/03/16 at 03:01 LORAINE SKINNER MD December 02, 2016 17:28
--- NOTE | 2016-12-02 20:56 | CONS ---
Date/Time of Note Date/Time of Note DATE: 12/02/16 TIME: 20:51 Assessment/Plan Assessment/Plan Chief Complaint/Hosp Course assessment/impression - sepsis due to bronchitis or superimposed bacterial pneumonia - sick contact prior to the onset of illness suggests viral origin - [place] possibly secondary to viral syndrome. improving - immunocompromised state due to MM plus lenalidomide - MM s/p stem cell transplant at [facility] s/p chemotherapy, and radiation therapy for the lower back. recommendations - pending: nasopharyngeal swab for influenza PCR, respiratory virus PCR, respiratory culture (no sputum yet), legionella antigen, mycoplasma serology, crypto antigen, cocci serology - continue the current regimen of: IV vancomycin, cefepime, levofloxacin, and oseltamivir (12/02/2016). Oseltamivir to continue x5 days or until influenza is ruled out by PCR (rapid test was negative) - droplet precautions until respiratory viruses are ruled out by PCR management d/w Pt, his brother Problems: Consultation Date/Type/Reason Admit Date/Time November 30, 2016 at 14:40 Initial Consult Date 12/01/16 Type of Consultation: ID Referring Provider: BEV SPARKS MD 24 HR Interval Summary Constitutional: febrile, improved, No chills Detailed Summary Eyes: no complaints ENT: no complaints Respiratory: cough, shortness of breath, No sputum Cardiovascular: no complaints Gastrointestinal: no complaints Genitourinary: no complaints Musculoskeletal: back pain Skin: no complaints Neurologic: headache (only when fever starts) Exam/Review of Systems Vital Signs Vitals Vital Signs Date Time Temp Pulse Resp B/P Pulse Ox O2 Delivery O2 Flow Rate FiO2 12/02/16 16:27 95 20 Nasal Cannula 2.0 12/02/16 15:13 99.5 12/02/16 08:16 116/70 94 11/30/16 18:53 21 Intake and Output 12/01/16 12/01/16 12/02/16 15:00 23:00 07:00 Intake Total 50 ml 1040 ml 730 ml Output Total 680 ml Balance 50 ml 1040 ml 50 ml Exam Constitutional: alert, oriented, well developed Psych: no complaints Head: atraumatic, normocephalic Eyes: nl conjunctiva, nl lids ENMT: nl external ears & nose, nl nasal mucosa & septum Neck: supple Respiratory: crackles/rales, wheezing Cardiovascular: nl pulses, regular rate and rhythm Gastrointestinal: non-tender, soft Musculoskeletal: nl extremities to inspection Extremities: No edema Results Result Diagram: 12/02/16 0530 12/02/16 0530 Results 24 hrs Laboratory Tests Test 12/02/16 05:30 White Blood Count 4.5 L Red Blood Count 4.05 L Hemoglobin 13.2 L Hematocrit 39.9 L Mean Corpuscular Volume 98.5 Mean Corpuscular Hemoglobin 32.6 Mean Corpuscular Hemoglobin Concent 33.1 Red Cell Distribution Width 13.0 Platelet Count 176 Mean Platelet Volume 10.0 Neutrophils % 44.8 Lymphocytes % 39.3 Monocytes % 11.5 H Eosinophils % 3.1 Basophils % 1.1 Nucleated Red Blood Cells % 0.0 Neutrophils # 2.0 Lymphocytes # 1.8 Monocytes # 0.5 Eosinophils # 0.1 Basophils # 0.1 Nucleated Red Blood Cells # 0.0 Sodium Level 140 Potassium Level 4.0 Chloride Level 105 Carbon Dioxide Level 25 Anion Gap 14 Blood Urea Nitrogen 8 Creatinine 0.87 Glucose Level 100 Calcium Level 8.7 Medications Medications Current Medications Acetaminophen (Tylenol Tab) 500 mg Q6H PRN PO PAIN AND OR ELEVATED TEMP Last administered on 12/01/16 14:55; Admin Dose 500 MG; Start 11/30/16 at 22:30 Ketorolac Tromethamine (Toradol) 30 mg Q6H PRN IV PAIN; Start 11/30/16 at 22:30 ; Stop 12/03/16 at 22:29 Famotidine (Pepcid) 20 mg BID PO Last administered on 12/02/16 08:45; Admin Dose 20 MG; Start 12/01/16 at 09:00 Enoxaparin Sodium (Lovenox) 40 mg DAILY SC Last administered on 12/02/16 08:45 ; Admin Dose 40 MG; Start 12/01/16 at 09:00 Guaifenesin/ Dextromethorphan (Robitussin Dm Liquid Cup) 5 ml Q4H PRN PO COUGH Last administered on 12/02/16 10:32; Admin Dose 5 ML; Start 11/30/16 at 22:30 Patient Own Medication 1 ea 1 ea DAILY PO Last administered on 12/02/16 08:45; Admin Dose 1 EA; Start 12/01/16 at 14:30; Stop 12/11/16 at 09:01 Cefepime HCl 50 ml @ 100 mls/hr Q12 IVPB Last administered on 12/02/16 08:44; Admin Dose 100 MLS/HR; Start 12/01/16 at 21:00 Levofloxacin/ Dextrose (Levaquin 500mg/ D5W 100 ml (Pmx)) 100 ml @ 100 mls/hr Q24H IVPB Last administered on 12/02/16 13:36; Admin Dose 100 MLS/HR; Start 12/01/16 at 14:00 Oseltamivir Phosphate 75 mg 75 mg BID PO Last administered on 12/02/16 08:44; Admin Dose 75 MG; Start 12/01/16 at 21:00; Stop 12/06/16 at 20:59 Vancomycin HCl (Vancocin) 250 ml @ 125 mls/hr Q12H IVPB Last administered on 16:24; Admin Dose 125 MLS/HR; Start 12/02/16 at 04:00 Aspirin (Halfprin) 81 mg DAILY PO Last administered on 12/02/16 08:45; Admin Dose 81 MG; Start 12/01/16 at 18:00 Zolpidem Tartrate (Ambien) 5 mg HS PRN PO INSOMNIA; Start 12/01/16 at 22:00 Methylprednisolone Sodium Succinate (Solu-Medrol) 40 mg QAM IV Last administered on 12/02/16 13:36; Admin Dose 40 MG; Start 12/02/16 at 13:00 Miscellaneous Information (*Rx Drug Level Order Reminder*) VANCOMYCIN TROUGH 12/03 AT 0300 ONCE ONCE XX ; Start 12/03/16 at 03:00; Stop 12/03/16 at 03:01 SILVIANO AREVALO M.D. December 02, 2016 20:55
[2016-12-02 21:02] VITALS: BP 119/64; RESP 21
--- NOTE | 2016-12-03 02:20 | PN ---
DATE: 12/02/2016 SUBJECTIVE: Follow up on acute bronchitis, possibly viral, however, bacterial component cannot be r uled out. The patient's temperature range has come down and T maximum is 100.4. Patient, however, has developed increasing cough and chest congestion and has occasional wheezing. No reported angina l chest pain. No reported vomiting or diarrhea. No reported acute skin rash or joint swelling. Th e patient has remained awake, alert. The headache has improved. PHYSICAL EXAMINATION: GENERAL: The patient is conscious, awake, alert. VITAL SIGNS: T-max 100.4, pulse 93, respirations 20, blood pressure 116/70, O2 saturation 94% on 2 liters nasal cannula. HEENT: Atraumatic, normocephalic head. Conjunctivae and lids normal. Oropharynx clear. NECK: Supple. No mass or thyromegaly. CHEST: Revealed bilateral coarse breath sounds and rhonchi. CARDIOVASCULAR: S1, S2 normal. No murmur, gallop, or rub. ABDOMEN: Soft, nondistended, nontender. No palpable mass and no pulsatile mass. EXTREMITIES: No leg edema. Pedal pulses palpable. SKIN: Without acute rash. NEUROLOGIC: The patient is awake, alert, fairly oriented with no gross focal deficits. LABORATORY DATA: WBC 4.8, hemoglobin 13.2, platelets 176. Sodium 140, potassium , BUN 8, crea tinine 0.8, glucose 100, calcium 8.7. Influenza A and B screen negative. IMPRESSION: 1. Acute bronchitis, viral versus bacterial. The patient is unable to expectorate. We will start the patient on small dose of steroids as well as will increase breathing treatment frequency. 2. Multiple myeloma status post stem cell transplant. Continue treatment as per Dr. Cole. 3. Mildly elevated liver enzymes and bilirubin. Continue to monitor. The patient has no nausea, v omiting, or abdominal pain. Plan of care discussed with nursing staff. Dictated By: BEV KOEHLER/BASILIO Conf#: [id number] DID#: [id number]
[2016-12-03 03:46] LABS: CREATININE 0.79 mg/dl (0.61-1.24)
[2016-12-03] MEDS ORDERED: VANCOMYCIN 1 GM in NS 250 ML IVPB SCH (04:00)
[2016-12-03] MEDS: GUAIFENESIN/DM 5ML CUP PO PRN (04:31)
[2016-12-03 08:13] VITALS: BP 111/68; RESP 16
[2016-12-03] MEDS: OSELTAMIVIR 75 MG CAP PO SCH ×2 (08:32→20:28)
[2016-12-03] MEDS: CEFEPIME 2GM/50 ML (PMX) 50 ML IVPB SCH ×2 (08:32→20:29)
[2016-12-03] MEDS: FAMOTIDINE 20 MG TAB PO SCH ×2 (08:32→20:28)
[2016-12-03] MEDS: ASPIRIN (EC) 81 MG TAB PO SCH (08:32)
[2016-12-03] MEDS: METHYLPREDNISOLONE 40 MG INJ IV SCH (08:32)
[2016-12-03] MEDS: LENALIDOMIDE PO SCH (08:33)
[2016-12-03] MEDS: ENOXAPARIN 40 MG/0.4 ML SYG SC SCH (08:33)
--- NOTE | 2016-12-03 11:01 | PN ---
Date/Time of Note Date/Time of Note DATE: 12/03/16 TIME: 10:58 Assessment/Plan VTE Prophylaxis VTE Prophylaxis Intervention: SCD's Lines/Catheters IV C[facility]ter Type (from [facility]): Saline Lock Urinary Cath still in place: No Assessment/Plan Chief Complaint/Hosp Course Assessment/Plan - Sepsis secondary to bronchitis, continue broad-spectrum antibiotics and and Tamiflu. Dr. Maher is following an infection disease consultation. - Acute bronchitis, viral versus bacterial, continue breathing treatment oxygen supplementation. - Multiple myeloma, s/p stem cell transplant at [facility] s/p chemotherapy, and radiation therapy for the lower back. Patient is followed by Dr. Cole in hematology consultation. Further recommendations based on clinical course. Plan of care discussed with Dr. Mensah. Problems: Subjective 24 Hr Interval Summary Free Text/Dictation Patient's continues to have dry cough, remains afebrile, requiring breathing treatment. Exam/Review of Systems Vital Signs Vitals Vital Signs Date Time Temp Pulse Resp B/P Pulse Ox O2 Delivery O2 Flow Rate FiO2 12/03/16 08:13 98.3 85 16 111/68 94 12/03/16 08:00 2.0 12/02/16 22:59 Nasal Cannula 11/30/16 18:53 21 Intake and Output 12/02/16 12/02/16 12/03/16 15:00 23:00 07:00 Intake Total 150 ml 1880 ml 730 ml Balance 150 ml 1880 ml 730 ml Exam Constitutional: alert, oriented Psych: no complaints Head: atraumatic, normocephalic Eyes: nl conjunctiva ENMT: nl external ears & nose Neck: non-tender Respiratory: clear to auscultation, normal air movement Cardiovascular: nl pulses, regular rate and rhythm Gastrointestinal: non-tender, soft Musculoskeletal: nl extremities to inspection Extremities: normal pulses Neurological: MINERAL ECONOMIST II-XII intact Results Result Diagram: 12/02/16 0530 12/03/16 0309 Results 24 hrs Laboratory Tests Test 12/03/16 03:09 Blood Urea Nitrogen 10 Creatinine 0.79 Vancomycin Level Trough 7.3 L Medications Medications Current Medications Acetaminophen (Tylenol Tab) 500 mg Q6H PRN PO PAIN AND OR ELEVATED TEMP Last administered on 12/01/16t 14:55; Admin Dose 500 MG; Start 11/30/16 at 22:30 Ketorolac Tromethamine (Toradol) 30 mg Q6H PRN IV PAIN; Start 11/30/16 at 22:30 ; Stop 12/03/16 at 22:29 Famotidine (Pepcid) 20 mg BID PO Last administered on 12/03/16 08:32; Admin Dose 20 MG; Start 12/01/16 at 09:00 Enoxaparin Sodium (Lovenox) 40 mg DAILY SC Last administered on 12/03/16 08:33 ; Admin Dose 40 MG; Start 12/01/16 at 09:00 Guaifenesin/ Dextromethorphan (Robitussin Dm Liquid Cup) 5 ml Q4H PRN PO COUGH Last administered on 12/03/16 04:31; Admin Dose 5 ML; Start 11/30/16 at 22:30 Patient Own Medication 1 ea 1 ea DAILY PO Last administered on 12/03/16 08:33; Admin Dose 1 EA; Start 12/01/16 at 14:30; Stop 12/11/16 at 09:01 Cefepime HCl 50 ml @ 100 mls/hr Q12 IVPB Last administered on 12/03/16 08:32; Admin Dose 100 MLS/HR; Start 12/01/16 at 21:00 Levofloxacin/ Dextrose (Levaquin 500mg/ D5W 100 ml (Pmx)) 100 ml @ 100 mls/hr Q24H IVPB Last administered on 12/02/16 13:36; Admin Dose 100 MLS/HR; Start 12/01/16 at 14:00 Oseltamivir Phosphate (Tamiflu) 75 mg BID PO Last administered on 12/03/16 08: 32; Admin Dose 75 MG; Start 12/01/16 at 21:00; Stop 12/06/16 at 20:59 Aspirin (Halfprin) 81 mg DAILY PO Last administered on 12/03/16 08:32; Admin Dose 81 MG; Start 12/01/16 at 18:00 Zolpidem Tartrate (Ambien) 5 mg HS PRN PO INSOMNIA; Start 12/01/16 at 22:00 Methylprednisolone Sodium Succinate (Solu-Medrol) 40 mg QAM IV Last administered on 12/03/16 08:32; Admin Dose 40 MG; Start 12/02/16 at 13:00 ASAF HARKINS December 03, 2016 11:01
--- NOTE | 2016-12-03 12:15 | CONS ---
Date/Time of Note Date/Time of Note DATE: 12/03/16 TIME: 12:12 Assessment/Plan Assessment/Plan Chief Complaint/Hosp Course assessment/impression - sepsis due to bronchitis or superimposed bacterial pneumonia, improved - sick contact prior to the onset of illness suggests viral origin - STEIN possibly secondary to viral syndrome. improved - immunocompromised state due to multiple myeloma plus lenalidomide - multiple myeloma s/p stem cell transplant at [facility] s/p chemotherapy, and radiation therapy for the lower back. recommendations - pending: nasopharyngeal swab for influenza PCR, respiratory virus PCR, respiratory culture, legionella antigen, mycoplasma serology, crypto antigen, cocci serology - continue the current regimen of: IV vancomycin, cefepime, levofloxacin, and oseltamivir (12/02/2016). Oseltamivir to continue x5 days or until influenza is ruled out by PCR (rapid test was negative) - droplet precautions until respiratory viruses are ruled out by PCR management d/w Pt, his and son Problems: Consultation Date/Type/Reason Admit Date/Time November 30, 2016 at 14:40 Initial Consult Date 12/01/16 Type of Consultation: ID Referring Provider: BEV SPARKS MD 24 HR Interval Summary Constitutional: improved, no complaints Detailed Summary Eyes: no complaints ENT: no complaints Respiratory: cough, No pain, No pleuritic pain, No shortness of breath, No sputum Cardiovascular: no complaints Gastrointestinal: no complaints Genitourinary: no complaints Musculoskeletal: other (some mylagia with cough only) Skin: no complaints Neurologic: no complaints Endocrine: no complaints Exam/Review of Systems Vital Signs Vitals Vital Signs Date Time Temp Pulse Resp B/P Pulse Ox O2 Delivery O2 Flow Rate FiO2 12/03/16 08:13 98.3 85 16 111/68 94 12/03/16 08:00 2.0 12/02/16 22:59 Nasal Cannula 11/30/16 18:53 21 Intake and Output 12/02/16 12/02/16 12/03/16 15:00 23:00 07:00 Intake Total 150 ml 1880 ml 730 ml Balance 150 ml 1880 ml 730 ml Exam Constitutional: alert, oriented, well developed Psych: nl mood/affect, no complaints Head: atraumatic, normocephalic Eyes: nl conjunctiva, nl lids ENMT: nl external ears & nose, nl lips & teeth, nl nasal mucosa & septum Neck: supple Respiratory: clear to auscultation, normal air movement Cardiovascular: nl pulses, regular rate and rhythm Gastrointestinal: non-tender, soft Musculoskeletal: nl extremities to inspection Extremities: normal pulses, No edema Neurological: ELEVATOR REPAIRER HELPER II-XII intact, nl mental status, nl speech, nl strength Results Result Diagram: 12/02/16 0530 12/03/16 0309 Results 24 hrs Laboratory Tests Test 12/03/16 03:09 Blood Urea Nitrogen 10 Creatinine 0.79 Vancomycin Level Trough 7.3 L Medications Medications Current Medications Acetaminophen (Tylenol Tab) 500 mg Q6H PRN PO PAIN AND OR ELEVATED TEMP Last administered on 12/01/16 14:55; Admin Dose 500 MG; Start 11/30/16 at 22:30 Ketorolac Tromethamine (Toradol) 30 mg Q6H PRN IV PAIN; Start 11/30/16 at 22:30 ; Stop 12/03/16 at 22:29 Famotidine (Pepcid) 20 mg BID PO Last administered on 12/03/16 08:32; Admin Dose 20 MG; Start 12/01/16 at 09:00 Enoxaparin Sodium (Lovenox) 40 mg DAILY SC Last administered on 12/03/16 08:33 ; Admin Dose 40 MG; Start 12/01/16 at 09:00 Guaifenesin/ Dextromethorphan (Robitussin Dm Liquid Cup) 5 ml Q4H PRN PO COUGH Last administered on 12/03/16 04:31; Admin Dose 5 ML; Start 11/30/16 at 22:30 Patient Own Medication 1 ea 1 ea DAILY PO Last administered on 12/03/16 08:33; Admin Dose 1 EA; Start 12/01/16 at 14:30; Stop 12/11/16 at 09:01 Cefepime HCl 50 ml @ 100 mls/hr Q12 IVPB Last administered on 12/03/16 08:32; Admin Dose 100 MLS/HR; Start 12/01/16 at 21:00 Levofloxacin/ Dextrose (Levaquin 500mg/ D5W 100 ml (Pmx)) 100 ml @ 100 mls/hr Q24H IVPB Last administered on 12/02/16 13:36; Admin Dose 100 MLS/HR; Start 12/01/16 at 14:00 Oseltamivir Phosphate (Tamiflu) 75 mg BID PO Last administered on 12/03/16 08: 32; Admin Dose 75 MG; Start 12/01/16 at 21:00; Stop 12/06/16 at 20:59 Aspirin (Halfprin) 81 mg DAILY PO Last administered on 12/03/16 08:32; Admin Dose 81 MG; Start 12/01/16 at 18:00 Zolpidem Tartrate (Ambien) 5 mg HS PRN PO INSOMNIA; Start 12/01/16 at 22:00 Methylprednisolone Sodium Succinate 40 mg 40 mg QAM IV Last administered on 12/03 08:32; Admin Dose 40 MG; Start 12/02/16 at 13:00 Vancomycin HCl/ Sodium Chloride (Vancocin/NS) 250 ml @ 83.333 mls/ hr Q12H IVPB ; Start 12/03/16 at 15:00 SILVIANO AREVALO M.D. December 03, 2016 12:15
[2016-12-03] MEDS: LEVALBUTEROL (NEB) 0.63 MG/3 ML AMP HHN PRN (12:31)
[2016-12-03 14:13] LABS: TB-NIL <0.00 IU/mL
[2016-12-03] MEDS: LEVOFLOXACIN 500MG/D5W (PMX) 100 ML IVPB SCH (14:32)
[2016-12-03] MEDS: VANCOMYCIN 1.5 GM in SOD CHLORIDE 0.9% 250 ML IVPB SCH (15:32)
--- NOTE | 2016-12-03 18:48 | CONS ---
Date/Time of Note Date/Time of Note DATE: 12/03/16 TIME: 18:47 Assessment/Plan Assessment/Plan Chief Complaint/Hosp Course 56 yo male with IgG kappa multiple myeloma s/p auto SCT in 04/2014 currently on maintenance Revlimid 5 mg q day who now presents with what appears to be an acute viral illness. Last SPEP done 09/2016 does not reveal evidence of monoclonal gammopathy and Plummer/ Lambda light chains were all within normal limits. Pt is now admitted with sepsis secondary to bronchial infection. Patient is immunocompromised from his underlying multiple myeloma. # Sepsis, Tm 99.5 today at 3 p.m. -management per ID. follow up serologies ordered -cont broad spectrum antibiotics / antiviral therapy including IV vancomycin, cefepime, levofloxacin, and oseltamivir # Multiple Myeloma -last myeloma labs drawn 1 month ago did not reveal evidence of active disease -once patient is discharged will redraw the myeloma labs -can hold Revlimid while patient is hospitalized and plan to restart as an outpatient Problems: Consultation Date/Type/Reason Admit Date/Time November 30, 2016 at 14:40 Initial Consult Date 12/01/16 Type of Consultation: Hematology/Oncology Referring Provider: BEV SPARKS MD 24 HR Interval Summary Free Text/Dictation The patient states that his breathing is better. Exam/Review of Systems Vital Signs Vitals Vital Signs Date Time Temp Pulse Resp B/P Pulse Ox O2 Delivery O2 Flow Rate FiO2 12/03/16 12:33 96 21 12/03/16 12:32 90 22 12/03/16 08:13 98.3 111/68 12/03/16 08:00 2.0 12/02/16 22:59 Nasal Cannula Intake and Output 12/02/16 12/02/16 12/03/16 15:00 23:00 07:00 Intake Total 150 ml 1880 ml 730 ml Balance 150 ml 1880 ml 730 ml Exam Constitutional: alert, oriented Psych: no complaints Head: atraumatic, normocephalic Eyes: nl conjunctiva ENMT: nl external ears & nose Neck: non-tender, supple Respiratory: bibasilar crackles, no wheezing Cardiovascular: regular rate and rhythm Gastrointestinal: soft Musculoskeletal: nl extremities to inspection Extremities: calf tenderness Results Result Diagram: 12/02/16 0530 12/03/16 0309 Results 24 hrs Laboratory Tests Test 12/03/16 03:09 Blood Urea Nitrogen 10 Creatinine 0.79 Vancomycin Level Trough 7.3 L Medications Medications Current Medications Acetaminophen (Tylenol Tab) 500 mg Q6H PRN PO PAIN AND OR ELEVATED TEMP Last administered on 12/01/16 14:55; Admin Dose 500 MG; Start 11/30/16 at 22:30 Ketorolac Tromethamine (Toradol) 30 mg Q6H PRN IV PAIN; Start 11/30/16 at 22:30 ; Stop 12/03/16 at 22:29 Famotidine (Pepcid) 20 mg BID PO Last administered on 12/03/16 08:32; Admin Dose 20 MG; Start 12/01/16 at 09:00 Enoxaparin Sodium (Lovenox) 40 mg DAILY SC Last administered on 12/03/16 08:33 ; Admin Dose 40 MG; Start 12/01/16 at 09:00 Guaifenesin/ Dextromethorphan (Robitussin Dm Liquid Cup) 5 ml Q4H PRN PO COUGH Last administered on 12/03/16 04:31; Admin Dose 5 ML; Start 11/30/16 at 22:30 Patient Own Medication 1 ea 1 ea DAILY PO Last administered on 12/03/16 08:33; Admin Dose 1 EA; Start 12/01/16 at 14:30; Stop 12/11/16 at 09:01 Cefepime HCl 50 ml @ 100 mls/hr Q12 IVPB Last administered on 12/03/16 08:32; Admin Dose 100 MLS/HR; Start 12/01/16 at 21:00 Levofloxacin/ Dextrose (Levaquin 500mg/ D5W 100 ml (Pmx)) 100 ml @ 100 mls/hr Q24H IVPB Last administered on 12/03/16 14:32; Admin Dose 100 MLS/HR; Start 12/01/16 at 14:00 Oseltamivir Phosphate (Tamiflu) 75 mg BID PO Last administered on 12/03/16 08: 32; Admin Dose 75 MG; Start 12/01/16 at 21:00; Stop 12/06/16 at 20:59 Aspirin (Halfprin) 81 mg DAILY PO Last administered on 12/03/16 08:32; Admin Dose 81 MG; Start 12/01/16 at 18:00 Zolpidem Tartrate (Ambien) 5 mg HS PRN PO INSOMNIA; Start 12/01/16 at 22:00 Methylprednisolone Sodium Succinate 40 mg 40 mg QAM IV Last administered on 12/03 08:32; Admin Dose 40 MG; Start 12/02/16 at 13:00 Vancomycin HCl/ Sodium Chloride (Vancocin/NS) 250 ml @ 83.333 mls/ hr Q12H IVPB Last administered on 12/03/16 15:32; Admin Dose 83.333 MLS/HR; Start at 15:00 LORAINE SKINNER MD December 03, 2016 18:48
[2016-12-03 20:01] VITALS: BP 117/79; RESP 17
[2016-12-03] MEDS: LEVALBUTEROL (NEB) 0.63 MG/3 ML AMP HHN SCH (20:41)
[2016-12-04] MEDS: VANCOMYCIN 1.5 GM in SOD CHLORIDE 0.9% 250 ML IVPB SCH ×2 (03:36→15:20)
[2016-12-04 05:22] LABS: ADD SCAN DIFF NO
[2016-12-04 05:24] LABS: BASOPHILS % 0.3 % (0.0-2.0); EOSINOPHILS % 0.3 % (0.0-7.0); HEMATOCRIT 36.6 % (42.0-52.0); HEMOGLOBIN 12.4 g/dl (14.0-18.0); LYMPHOCYTES # 1.7 10^3/ul (0.8-2.9); LYMPHOCYTES % 24.6 % (15.0-51.0); MEAN CORPUSCULAR HEMOGLOBIN 33.3 pg (29.0-33.0); MEAN CORPUSCULAR HGB CONC 33.9 g/dl (32.0-37.0); MEAN CORPUSCULAR VOLUME 98.4 fl (82.0-101.0); MEAN PLATELET VOLUME 9.5 fl (7.4-10.4); MONOCYTE # 0.7 10^3/ul (0.3-0.9); MONOCYTES % 9.6 % (0.0-11.0); NEUTROPHIL # 4.6 10^3/ul (1.6-7.5); NEUTROPHILS % 64.8 % (39.0-77.0); PLATELET COUNT 226 10^3/UL (140-415); RED BLOOD COUNT 3.72 10^6/ul (4.70-6.10); RED CELL DISTRIBUTION WIDTH 12.7 % (11.5-14.5); WHITE BLOOD COUNT 7.1 10^3/ul (4.8-10.8)
[2016-12-04 06:07] LABS: CALCIUM 8.7 mg/dl (8.4-10.2); CREATININE 0.77 mg/dl (0.61-1.24)
[2016-12-04 07:30] VITALS: BP 121/79; RESP 16
[2016-12-04] MEDS: LEVALBUTEROL (NEB) 0.63 MG/3 ML AMP HHN SCH ×3 (07:36→19:47)
[2016-12-04] MEDS: METHYLPREDNISOLONE 40 MG INJ IV SCH (08:46)
[2016-12-04] MEDS: ASPIRIN (EC) 81 MG TAB PO SCH (08:46)
[2016-12-04] MEDS: CEFEPIME 2GM/50 ML (PMX) 50 ML IVPB SCH ×2 (08:46→21:34)
[2016-12-04] MEDS: ENOXAPARIN 40 MG/0.4 ML SYG SC SCH (08:46)
[2016-12-04] MEDS: OSELTAMIVIR 75 MG CAP PO SCH ×2 (08:46→21:33)
[2016-12-04] MEDS: FAMOTIDINE 20 MG TAB PO SCH ×2 (08:46→21:34)
[2016-12-04] MEDS: GUAIFENESIN/DM 5ML CUP PO PRN ×2 (09:51→21:41)
--- NOTE | 2016-12-04 11:31 | RADRPT ---
PROCEDURE: XR Chest 1 View. CLINICAL INDICATION: Shortness of breath. TECHNIQUE: AP view of the chest was obtained. COMPARISON: November 30, [address] November 30, 2016 FINDINGS: The cardiomediastinal silhouette is within normal limits. The lungs are hypoinflated. Elevation of the right hemidiaphragm is observed. Atelectasis is noted at the lung bases. No consolidations are identified. No pneumothorax is seen. Osseous structures are intact. IMPRESSION: Subsegmental atelectasis at the lung bases. Hypoinflated lungs with elevation of the right hemidiaphragm. RPTAT: AA .Robbi Walsh MD, Date Time Electronically viewed and signed by .Robbi Walsh MD, MD on 12/04/2016 11:31 .P/
[2016-12-04 13:22] LABS: CRYPTOCOCCAL ANTIGEN - SOURCE Serum
[2016-12-04] MEDS: LENALIDOMIDE PO SCH (13:51)
[2016-12-04] MEDS: LEVOFLOXACIN 500MG/D5W (PMX) 100 ML IVPB SCH (13:51)
[2016-12-04 15:25] LABS: MYCOPLASMA PNEUMONIAE AB (IGG) < or = 0.90
--- NOTE | 2016-12-04 16:01 | CONS ---
Date/Time of Note Date/Time of Note DATE: 12/04/16 TIME: 16:00 Assessment/Plan Assessment/Plan Chief Complaint/Hosp Course - sepsis due to bronchitis or superimposed bacterial pneumonia, improved - sick contact prior to the onset of illness suggests viral origin - STEIN possibly secondary to viral syndrome. improved - immunocompromised state due to multiple myeloma plus lenalidomide - multiple myeloma s/p stem cell transplant at [facility] s/p chemotherapy, and radiation therapy for the lower back. recommendations - still pending: nasopharyngeal swab for influenza PCR, respiratory virus PCR, respiratory culture, legionella antigen, mycoplasma serology, crypto antigen, cocci serology - continue the current regimen of: IV vancomycin, cefepime, levofloxacin, and oseltamivir (12/02/2016). Oseltamivir to continue x5 days or until influenza is ruled out by PCR (rapid test was negative) - droplet precautions until respiratory viruses are ruled out by PCR Problems: Consultation Date/Type/Reason Admit Date/Time November 30, 2016 at 14:40 Initial Consult Date 12/01/16 Type of Consultation: id Referring Provider: BEV SPARKS MD 24 HR Interval Summary Free Text/Dictation slowly improving. still fatigued. anxious to return home. Exam/Review of Systems Vital Signs Vitals Vital Signs Date Time Temp Pulse Resp B/P Pulse Ox O2 Delivery O2 Flow Rate FiO2 12/04/16 13:20 94 20 95 21 12/04/16 07:30 97.7 121/79 12/03/16 08:00 2.0 12/02/16 22:59 Nasal Cannula Intake and Output 12/03/16 12/03/16 12/04/16 15:00 23:00 07:00 Intake Total 50 ml 2060 ml 1050 ml Balance 50 ml 2060 ml 1050 ml Exam Constitutional: alert, oriented, well developed Psych: nl mood/affect, no complaints Head: atraumatic, normocephalic Eyes: EOMI, PERRL, nl conjunctiva, nl lids, nl sclera Neck: non-tender, supple Respiratory: clear to auscultation, normal air movement Cardiovascular: nl pulses, regular rate and rhythm Results Result Diagram: 12/04/16 0501 12/04/16 0501 Results 24 hrs Laboratory Tests Test 12/04/16 05:01 White Blood Count 7.1 # Red Blood Count 3.72 L Hemoglobin 12.4 L Hematocrit 36.6 L Mean Corpuscular Volume 98.4 Mean Corpuscular Hemoglobin 33.3 H Mean Corpuscular Hemoglobin Concent 33.9 Red Cell Distribution Width 12.7 Platelet Count 226 # Mean Platelet Volume 9.5 Neutrophils % 64.8 Lymphocytes % 24.6 Monocytes % 9.6 Eosinophils % 0.3 Basophils % 0.3 Nucleated Red Blood Cells % 0.0 Neutrophils # 4.6 Lymphocytes # 1.7 Monocytes # 0.7 Eosinophils # 0.0 Basophils # 0.0 Nucleated Red Blood Cells # 0.0 Sodium Level 139 Potassium Level 4.0 Chloride Level 108 Carbon Dioxide Level 25 Anion Gap 10 Blood Urea Nitrogen 13 Creatinine 0.77 Glucose Level 110 Calcium Level 8.7 Medications Medications Current Medications Acetaminophen (Tylenol Tab) 500 mg Q6H PRN PO PAIN AND OR ELEVATED TEMP Last administered on 12/01/16 14:55; Admin Dose 500 MG; Start 11/30/16 at 22:30 Famotidine (Pepcid) 20 mg BID PO Last administered on 12/04/16 08:46; Admin Dose 20 MG; Start 12/01/16 at 09:00 Enoxaparin Sodium (Lovenox) 40 mg DAILY SC Last administered on 12/04/16 08:46 ; Admin Dose 40 MG; Start 12/01/16 at 09:00 Guaifenesin/ Dextromethorphan (Robitussin Dm Liquid Cup) 5 ml Q4H PRN PO COUGH Last administered on 12/04/16 09:51; Admin Dose 5 ML; Start 11/30/16 at 22:30 Patient Own Medication 1 ea 1 ea DAILY PO Last administered on 12/04/16 13:51; Admin Dose 1 EA; Start 12/01/16 at 14:30; Stop 12/11/16 at 09:01 Cefepime HCl 50 ml @ 100 mls/hr Q12 IVPB Last administered on 12/04/16 08:46; Admin Dose 100 MLS/HR; Start 12/01/16 at 21:00 Levofloxacin/ Dextrose (Levaquin 500mg/ D5W 100 ml (Pmx)) 100 ml @ 100 mls/hr Q24H IVPB Last administered on 12/04/16 13:51; Admin Dose 100 MLS/HR; Start 12/01/16 at 14:00 Oseltamivir Phosphate (Tamiflu) 75 mg BID PO Last administered on 12/04/16 08: 46; Admin Dose 75 MG; Start 12/01/16 at 21:00; Stop 12/06/16 at 20:59 Aspirin (Halfprin) 81 mg DAILY PO Last administered on 12/04/16 08:46; Admin Dose 81 MG; Start 12/01/16 at 18:00 Zolpidem Tartrate (Ambien) 5 mg HS PRN PO INSOMNIA Last administered on 20:29; Admin Dose 5 MG; Start 12/01/16 at 22:00 Methylprednisolone Sodium Succinate 40 mg 40 mg QAM IV Last administered on 12/04 08:46; Admin Dose 40 MG; Start 12/02/16 at 13:00 Vancomycin HCl/ Sodium Chloride (Vancocin/NS) 250 ml @ 83.333 mls/ hr Q12H IVPB Last administered on 12/04/16 15:20; Admin Dose 83.333 MLS/HR; Start at 15:00 Miscellaneous Information (*Rx Drug Level Order Reminder*) VANCOMYCIN TROUGH 12/05 AT 0200 ONCE ONCE XX ; Start 12/05/16 at 02:00; Stop 12/05/16 at 02:01 LASHONDA GERARD MD December 04, 2016 16:01
--- NOTE | 2016-12-04 16:09 | PN ---
Date/Time of Note Date/Time of Note DATE: 12/04/16 TIME: 16:08 Assessment/Plan VTE Prophylaxis VTE Prophylaxis Intervention: other Lines/Catheters [facility]from [facility] Saline Lock Urinary Cath still in place: No Assessment/Plan Assessment/Plan - Sepsis secondary to bronchitis, continue broad-spectrum antibiotics and and Tamiflu. - per Dr. Maher is following an infection disease consultation. - Acute bronchitis, viral versus bacterial, continue breathing treatment oxygen supplementation. - Multiple myeloma, s/p stem cell transplant at [facility] s/p chemotherapy, and radiation therapy for the lower back. - per Dr. Cole in hematology consultation. Further recommendations based on clinical course. Plan of care discussed with Dr. Mensah. Subjective 24 Hr Interval Summary Free Text/Dictation resting in bed, denies fever.cough at times, anxious to go home, Q Gold is negative. at bed side- all Qs answered. Constitutional: improved Eyes: no complaints ENT: no complaints Respiratory: cough, no complaints Cardiovascular: no complaints Gastrointestinal: no complaints Genitourinary: no complaints Musculoskeletal: no complaints Skin: no complaints Neurologic: no complaints Endocrine: no complaints Lymphatic: no complaints Psychological: no complaints Immunologic: no complaints Exam/Review of Systems Vital Signs Vitals Vital Signs Date Time Temp Pulse Resp B/P Pulse Ox O2 Delivery O2 Flow Rate FiO2 12/04/16 13:20 94 20 95 21 12/04/16 07:30 97.7 121/79 12/03/16 08:00 2.0 12/02/16 22:59 Nasal Cannula Intake and Output 12/03/16 12/03/16 12/04/16 15:00 23:00 07:00 Intake Total 50 ml 2060 ml 1050 ml Balance 50 ml 2060 ml 1050 ml Exam Constitutional: alert, oriented, well developed Psych: nl mood/affect Head: atraumatic Eyes: EOMI ENMT: nl external ears & nose Neck: non-tender Respiratory: diminished breath sounds Cardiovascular: nl pulses Gastrointestinal: non-tender, soft Musculoskeletal: nl extremities to inspection Extremities: normal pulses Neurological: nl mental status, nl speech Skin: nl turgor Lymph: nontender Results Result Diagram: 12/04/16 0501 12/04/16 0501 Results 24 hrs Laboratory Tests Test 12/04/16 05:01 White Blood Count 7.1 # Red Blood Count 3.72 L Hemoglobin 12.4 L Hematocrit 36.6 L Mean Corpuscular Volume 98.4 Mean Corpuscular Hemoglobin 33.3 H Mean Corpuscular Hemoglobin Concent 33.9 Red Cell Distribution Width 12.7 Platelet Count 226 # Mean Platelet Volume 9.5 Neutrophils % 64.8 Lymphocytes % 24.6 Monocytes % 9.6 Eosinophils % 0.3 Basophils % 0.3 Nucleated Red Blood Cells % 0.0 Neutrophils # 4.6 Lymphocytes # 1.7 Monocytes # 0.7 Eosinophils # 0.0 Basophils # 0.0 Nucleated Red Blood Cells # 0.0 Sodium Level 139 Potassium Level 4.0 Chloride Level 108 Carbon Dioxide Level 25 Anion Gap 10 Blood Urea Nitrogen 13 Creatinine 0.77 Glucose Level 110 Calcium Level 8.7 Medications Medications Current Medications Acetaminophen (Tylenol Tab) 500 mg Q6H PRN PO PAIN AND OR ELEVATED TEMP Last administered on 12/01/16 14:55; Admin Dose 500 MG; Start 11/30/16 at 22:30 Famotidine (Pepcid) 20 mg BID PO Last administered on 12/04/16 08:46; Admin Dose 20 MG; Start 12/01/16 at 09:00 Enoxaparin Sodium (Lovenox) 40 mg DAILY SC Last administered on 12/04/16 08:46 ; Admin Dose 40 MG; Start 12/01/16 at 09:00 Guaifenesin/ Dextromethorphan (Robitussin Dm Liquid Cup) 5 ml Q4H PRN PO COUGH Last administered on 12/04/16 09:51; Admin Dose 5 ML; Start 11/30/16 at 22:30 Patient Own Medication 1 ea 1 ea DAILY PO Last administered on 12/04/16 13:51; Admin Dose 1 EA; Start 12/01/16 at 14:30; Stop 12/11/16 at 09:01 Cefepime HCl 50 ml @ 100 mls/hr Q12 IVPB Last administered on 12/04/16 08:46; Admin Dose 100 MLS/HR; Start 12/01/16 at 21:00 Levofloxacin/ Dextrose (Levaquin 500mg/ D5W 100 ml (Pmx)) 100 ml @ 100 mls/hr Q24H IVPB Last administered on 12/04/16 13:51; Admin Dose 100 MLS/HR; Start 12/01/16 at 14:00 Oseltamivir Phosphate (Tamiflu) 75 mg BID PO Last administered on 12/04/16 08: 46; Admin Dose 75 MG; Start 12/01/16 at 21:00; Stop 12/06/16 at 20:59 Aspirin (Halfprin) 81 mg DAILY PO Last administered on 12/04/16 08:46; Admin Dose 81 MG; Start 12/01/16 at 18:00 Zolpidem Tartrate (Ambien) 5 mg HS PRN PO INSOMNIA Last administered on 20:29; Admin Dose 5 MG; Start 12/01/16 at 22:00 Methylprednisolone Sodium Succinate 40 mg 40 mg QAM IV Last administered on 12/04 08:46; Admin Dose 40 MG; Start 12/02/16 at 13:00 Vancomycin HCl/ Sodium Chloride (Vancocin/NS) 250 ml @ 83.333 mls/ hr Q12H IVPB Last administered on 12/04/16 15:20; Admin Dose 83.333 MLS/HR; Start at 15:00 Miscellaneous Information (*Rx Drug Level Order Reminder*) VANCOMYCIN TROUGH 12/05 AT 0200 ONCE ONCE XX ; Start 12/05/16 at 02:00; Stop 12/05/16 at 02:01 URIEL BHATT December 04, 2016 16:09 URIEL BHATT December 04, 2016 16:09
--- NOTE | 2016-12-04 18:22 | HKNOTE ---
DATE OF SERVICE: 12/04/2016 HISTORY OF PRESENT ILLNESS: Mr. Marte is a 56-year-old male with a history of IgG kappa multiple myeloma status post autologous stem cell transplant in 04/2014, and on maintenance Revlimid, was ad mitted because of admitted because of fever and cough, etc. was found to have bronchitis. The patie nt is on antibiotics and is improving. PAST MEDICAL HISTORY: Please see the H and P. REVIEW OF SYSTEMS: Please see the H and P. PHYSICAL EXAMINATION: GENERAL: Shows moderately built male who is slightly overweight. VITAL SIGNS: Unremarkable. ENT: Normal. HEART: Normal. LUNGS: Normal. ABDOMEN: There is no hepatosplenomegaly or lymphadenopathy. LABORATORY DATA: His CBC and CMP were unremarkable with albumin 3.6 and globulin 3.4 and hemoglobin slightly low at 12.4. IMPRESSION: 1. IgG kappa multiple myeloma in complete remission after stem cell transplant, on maintenance Revl imid. 2. Acute bronchitis, patient on antibiotics by ID. PLAN: The patient is improving. His myeloma is under complete remission. The patient still is imm unocompromised and has high risk for infections. We will monitor his labs while in the hospital and continue his Lovenox. He should not be on any NSAIDs. Dictated By: SHEREE JASON MD PC/NTS Conf#: [id number] DID#: [id number]
[2016-12-04 22:03] VITALS: BP 119/73; RESP 18
[2016-12-05] MEDS: VANCOMYCIN 1.5 GM in SOD CHLORIDE 0.9% 250 ML IVPB SCH (03:23)
[2016-12-05 04:57] LABS: ADD SCAN DIFF NO
[2016-12-05 05:06] LABS: BASOPHILS % 0.5 % (0.0-2.0); EOSINOPHILS # 0.1 10^3/ul (0.0-0.5); EOSINOPHILS % 1.1 % (0.0-7.0); HEMATOCRIT 36.5 % (42.0-52.0); HEMOGLOBIN 12.4 g/dl (14.0-18.0); LYMPHOCYTES # 1.9 10^3/ul (0.8-2.9); LYMPHOCYTES % 26.1 % (15.0-51.0); MEAN CORPUSCULAR HEMOGLOBIN 33.3 pg (29.0-33.0); MEAN CORPUSCULAR VOLUME 98.1 fl (82.0-101.0); MEAN PLATELET VOLUME 9.6 fl (7.4-10.4); MONOCYTE # 0.8 10^3/ul (0.3-0.9); MONOCYTES % 11.5 % (0.0-11.0); NEUTROPHIL # 4.4 10^3/ul (1.6-7.5); NEUTROPHILS % 60.4 % (39.0-77.0); PLATELET COUNT 224 10^3/UL (140-415); RED BLOOD COUNT 3.72 10^6/ul (4.70-6.10); RED CELL DISTRIBUTION WIDTH 12.6 % (11.5-14.5); WHITE BLOOD COUNT 7.3 10^3/ul (4.8-10.8)
[2016-12-05 05:22] LABS: CALCIUM 8.7 mg/dl (8.4-10.2); CREATININE 0.76 mg/dl (0.61-1.24); POTASSIUM 3.9 mmol/L (3.5-5.1)
[2016-12-05] MEDS: LEVALBUTEROL (NEB) 0.63 MG/3 ML AMP HHN SCH ×3 (08:07→22:06)
[2016-12-05 08:38] VITALS: BP 128/87; RESP 17
[2016-12-05] MEDS: FAMOTIDINE 20 MG TAB PO SCH ×2 (09:29→20:35)
[2016-12-05] MEDS: ENOXAPARIN 40 MG/0.4 ML SYG SC SCH (09:29)
[2016-12-05] MEDS: OSELTAMIVIR 75 MG CAP PO SCH ×2 (09:29→20:35)
[2016-12-05] MEDS: ASPIRIN (EC) 81 MG TAB PO SCH (09:29)
[2016-12-05] MEDS: METHYLPREDNISOLONE 40 MG INJ IV SCH (09:30)
[2016-12-05] MEDS: LENALIDOMIDE PO SCH ×3 (09:30→13:13)
[2016-12-05] MEDS: CEFEPIME 2GM/50 ML (PMX) 50 ML IVPB SCH ×2 (09:38→20:35)
--- NOTE | 2016-12-05 12:56 | CONS ---
Date/Time of Note Date/Time of Note DATE: 12/05/16 TIME: 12:56 Assessment/Plan Assessment/Plan Chief Complaint/Hosp Course - sepsis due to bronchitis or superimposed bacterial pneumonia, improved - sick contact prior to the onset of illness suggests viral origin - STEIN possibly secondary to viral syndrome. improved - immunocompromised state due to multiple myeloma plus lenalidomide - multiple myeloma s/p stem cell transplant at [facility] s/p chemotherapy, and radiation therapy for the lower back. recommendations - f/u pending labs - continue the current regimen of: IV vancomycin, cefepime, levofloxacin, and oseltamivir (12/02/2016). Oseltamivir to continue x5 days or until influenza is ruled out by PCR (rapid test was negative) - droplet precautions until respiratory viruses are ruled out by PCR Problems: Consultation Date/Type/Reason Admit Date/Time November 30, 2016 at 14:40 Initial Consult Date 12/01/16 Type of Consultation: id Referring Provider: BEV SPARKS MD Exam/Review of Systems Vital Signs Vitals Vital Signs Date Time Temp Pulse Resp B/P Pulse Ox O2 Delivery O2 Flow Rate FiO2 12/05/16 08:38 98.4 76 17 128/87 94 12/05/16 08:08 21 12/03/16 08:00 2.0 12/02/16 22:59 Nasal Cannula Intake and Output 12/04/16 12/04/16 12/05/16 15:00 23:00 07:00 Intake Total 50 ml 1390 ml 200 ml Balance 50 ml 1390 ml 200 ml Exam Constitutional: alert, oriented, well developed Psych: nl mood/affect, no complaints Head: atraumatic, normocephalic Eyes: EOMI, PERRL, nl conjunctiva, nl lids, nl sclera ENMT: nl external ears & nose, nl lips & teeth, nl nasal mucosa & septum Neck: non-tender, supple Respiratory: clear to auscultation, normal air movement Cardiovascular: nl pulses, regular rate and rhythm Gastrointestinal: nl liver, spleen, non-tender, soft Results Result Diagram: 12/05/16 0439 12/05/16 0439 Results 24 hrs Laboratory Tests Test 12/05/16 02:20 12/05/16 04:39 Vancomycin Level Trough 12.4 White Blood Count 7.3 Red Blood Count 3.72 L Hemoglobin 12.4 L Hematocrit 36.5 L Mean Corpuscular Volume 98.1 Mean Corpuscular Hemoglobin 33.3 H Mean Corpuscular Hemoglobin Concent 34.0 Red Cell Distribution Width 12.6 Platelet Count 224 Mean Platelet Volume 9.6 Neutrophils % 60.4 Lymphocytes % 26.1 Monocytes % 11.5 H Eosinophils % 1.1 Basophils % 0.5 Nucleated Red Blood Cells % 0.0 Neutrophils # 4.4 Lymphocytes # 1.9 Monocytes # 0.8 Eosinophils # 0.1 Basophils # 0.0 Nucleated Red Blood Cells # 0.0 Sodium Level 138 Potassium Level 3.9 Chloride Level 108 Carbon Dioxide Level 25 Anion Gap 9 Blood Urea Nitrogen 12 Creatinine 0.76 Glucose Level 98 Calcium Level 8.7 Medications Medications Current Medications Acetaminophen (Tylenol Tab) 500 mg Q6H PRN PO PAIN AND OR ELEVATED TEMP Last administered on 12/01/16 14:55; Admin Dose 500 MG; Start 11/30/16 at 22:30 Famotidine (Pepcid) 20 mg BID PO Last administered on 12/05/16 09:29; Admin Dose 20 MG; Start 12/01/16 at 09:00 Enoxaparin Sodium (Lovenox) 40 mg DAILY SC Last administered on 12/05/16 09:29 ; Admin Dose 40 MG; Start 12/01/16 at 09:00 Guaifenesin/ Dextromethorphan 5 ml 5 ml Q4H PRN PO COUGH Last administered on 21:41; Admin Dose 5 ML; Start 11/30/16 at 22:30 Cefepime HCl 50 ml @ 100 mls/hr Q12 IVPB Last administered on 12/05/16 09:38; Admin Dose 100 MLS/HR; Start 12/01/16 at 21:00 Levofloxacin/ Dextrose (Levaquin 500mg/ D5W 100 ml (Pmx)) 100 ml @ 100 mls/hr Q24H IVPB Last administered on 12/04/16 13:51; Admin Dose 100 MLS/HR; Start 12/01/16 at 14:00 Oseltamivir Phosphate (Tamiflu) 75 mg BID PO Last administered on 12/05/16 09: 29; Admin Dose 75 MG; Start 12/01/16 at 21:00; Stop 12/06/16 at 20:59 Aspirin (Halfprin) 81 mg DAILY PO Last administered on 12/05/16 09:29; Admin Dose 81 MG; Start 12/01/16 at 18:00 Zolpidem Tartrate (Ambien) 5 mg HS PRN PO INSOMNIA Last administered on 20:29; Admin Dose 5 MG; Start 12/01/16 at 22:00 Methylprednisolone Sodium Succinate 40 mg 40 mg QAM IV Last administered on 12/05 09:30; Admin Dose 40 MG; Start 12/02/16 at 13:00 Vancomycin HCl/ Sodium Chloride (Vancocin/NS) 500 ml @ 125 mls/hr Q12H IVPB ; Start 12/05/16 at 15:00 Patient Own Medication 1 ea DAILY@13 PO ; Start 12/05/16 at 13:00; Stop 12/11/16 at 09:01 LASHONDA GERARD MD December 05, 2016 12:56
--- NOTE | 2016-12-05 13:16 | PN ---
DATE: 12/05/2016 SUBJECTIVE: Follow up on acute bronchitis, multiple myeloma status post stem cell transplant. The patient still has some residual cough and chest congestion. Denies any pleuritic chest pain, no rep orted fever or chills, no reported diaphoresis, no reported nausea, vomiting. Cough is mostly dry a nd sputum culture grew normal respiratory montrell. PHYSICAL EXAMINATION: GENERAL: The patient is conscious, awake, alert. VITAL SIGNS: Temperature 98.4, pulse 76, respirations 17, blood pressure 128/87, O2 saturation 94% on room air. HEENT: No eye discharge or redness. Oropharynx clear. NECK: Supple. No mass, no thyromegaly. CHEST: Revealed a few bibasilar rales. CARDIOVASCULAR: S1, S2 normal. No murmur, gallop, or rub. ABDOMEN: Soft, nondistended, nontender. Bowel sounds plus. EXTREMITIES: No leg edema. NEUROLOGIC: The patient is awake, alert with no gross focal deficit. LABORATORY DATA: Done this morning, WBC 7.3, hemoglobin 12.4, platelets 224. Sodium 138, potassium 3.9, BUN 12, creatinine 0.7, glucose 98. Chest x-ray done yesterday revealed bibasilar atelectasis. IMPRESSION: 1. Acute bronchitis. Etiology unknown. The patient is being treated with IV vancomycin, cefepime, Levaquin and Tamiflu. 2. Influenza PCR, respiratory virus PCR is pending. The patient will continue Tamiflu for a total of 5 days. The patient will be continued on IV steroids and breathing treatment and Lovenox for DVT prophylaxis. DISPOSITION: Discharge planning once the patient is off respiratory isolation and once he is off mu ltiple IV antibiotics. Dictated By: BEV KOEHLER/BASILIO Conf#: [id number] DID#: [id number]
[2016-12-05] MEDS: LEVOFLOXACIN 500MG/D5W (PMX) 100 ML IVPB SCH (13:31)
[2016-12-05] MEDS: GUAIFENESIN/DM 5ML CUP PO PRN (13:35)
[2016-12-05] MEDS: VANCOMYCIN 1.75 GM in NS 500 ML IVPB SCH (15:12)
[2016-12-05 20:13] VITALS: BP 131/83; RESP 16
[2016-12-06 01:43] LABS: H1N1 2009 FLU A RNA NOT DETECTED; H1N1 2009 SOURCE NASOPHARYNGEAL; INFLUENZA VIRUS A/B SOURCE NASOPHARYNGEAL
[2016-12-06] MEDS: VANCOMYCIN 1.75 GM in NS 500 ML IVPB SCH ×2 (02:50→18:31)
[2016-12-06 07:30] VITALS: BP 131/87; RESP 19
[2016-12-06] MEDS: LEVALBUTEROL (NEB) 0.63 MG/3 ML AMP HHN SCH ×3 (07:47→17:13)
[2016-12-06] MEDS: METHYLPREDNISOLONE 40 MG INJ IV SCH (08:46)
[2016-12-06] MEDS: CEFEPIME 2GM/50 ML (PMX) 50 ML IVPB SCH ×2 (08:46→22:39)
[2016-12-06] MEDS: FAMOTIDINE 20 MG TAB PO SCH ×2 (08:46→20:16)
[2016-12-06] MEDS: ASPIRIN (EC) 81 MG TAB PO SCH (08:46)
[2016-12-06] MEDS: OSELTAMIVIR 75 MG CAP PO SCH (08:46)
[2016-12-06] MEDS: ENOXAPARIN 40 MG/0.4 ML SYG SC SCH (08:47)
[2016-12-06] MEDS: LENALIDOMIDE PO SCH (12:42)
--- NOTE | 2016-12-06 13:19 | CONS ---
Date/Time of Note Date/Time of Note DATE: 12/06/16 TIME: 13:16 Assessment/Plan Assessment/Plan Chief Complaint/Hosp Course 56 yo male with IgG kappa multiple myeloma s/p auto SCT in 04/2014 currently on maintenance Revlimid 5 mg q day who now presents with what appears to be an acute viral illness. Last SPEP done 09/2016 does not reveal evidence of monoclonal gammopathy and [place]/ Lambda light chains were all within normal limits. Pt is now admitted with sepsis secondary to bronchial infection. Patient is immunocompromised from his underlying multiple myeloma. # Sepsis, Tm 99.5 today at 3 p.m. -management per ID. -- f/u pending labs - continue the current regimen of: IV vancomycin, cefepime, levofloxacin, and oseltamivir (12/02/2016). Oseltamivir to continue x5 days or until influenza is ruled out by PCR (rapid test was negative) - droplet precautions until respiratory viruses are ruled out by PCR # Multiple Myeloma -last myeloma labs drawn 1 month ago did not reveal evidence of active disease -once patient is discharged will redraw the myeloma labs -can hold Revlimid while patient is hospitalized and plan to restart as an outpatient -will speak with transplant art teacher as to whether or not we should consider holding Revlimid in the future Problems: Consultation Date/Type/Reason Admit Date/Time November 30, 2016 at 14:40 Initial Consult Date 12/01/16 Type of Consultation: hematology Reason for Consultation multiple myeloma Referring Provider: BEV SPARKS MD 24 HR Interval Summary Free Text/Dictation pt is afebrile and states he feels better Exam/Review of Systems Vital Signs Vitals Vital Signs Date Time Temp Pulse Resp B/P Pulse Ox O2 Delivery O2 Flow Rate FiO2 12/06/16 07:47 68 18 93 21 12/06/16 07:30 97.8 131/87 12/03/16 08:00 2.0 12/02/16 22:59 Nasal Cannula Intake and Output 12/05/16 12/05/16 12/06/16 15:00 23:00 07:00 Intake Total 50 ml 1070 ml 1220 ml Balance 50 ml 1070 ml 1220 ml Exam Constitutional: alert, oriented Psych: no complaints Head: atraumatic, normocephalic Eyes: nl conjunctiva ENMT: nl external ears & nose Neck: non-tender, supple Respiratory: clear to auscultation, normal air movement Cardiovascular: regular rate and rhythm Gastrointestinal: soft Musculoskeletal: nl extremities to inspection, nl gait and stance Extremities: normal pulses Results Result Diagram: 12/05/1643812/05/16438 Medications Medications Current Medications Acetaminophen (Tylenol Tab) 500 mg Q6H PRN PO PAIN AND OR ELEVATED TEMP Last administered on 12/01/16 14:55; Admin Dose 500 MG; Start 11/30/16 at 22:30 Famotidine (Pepcid) 20 mg BID PO Last administered on 12/06/16 08:46; Admin Dose 20 MG; Start 12/01/16 at 09:00 Enoxaparin Sodium (Lovenox) 40 mg DAILY SC Last administered on 12/06/16 08:47 ; Admin Dose 40 MG; Start 12/01/16 at 09:00 Guaifenesin/ Dextromethorphan 5 ml 5 ml Q4H PRN PO COUGH Last administered on 13:35; Admin Dose 5 ML; Start 11/30/16 at 22:30 Cefepime HCl 50 ml @ 100 mls/hr Q12 IVPB Last administered on 12/06/16 08:46; Admin Dose 100 MLS/HR; Start 12/01/16 at 21:00 Levofloxacin/ Dextrose (Levaquin 500mg/ D5W 100 ml (Pmx)) 100 ml @ 100 mls/hr Q24H IVPB Last administered on 12/05/16 13:31; Admin Dose 100 MLS/HR; Start 12/01/16 at 14:00 Oseltamivir Phosphate (Tamiflu) 75 mg BID PO Last administered on 12/06/16 08: 46; Admin Dose 75 MG; Start 12/01/16 at 21:00; Stop 12/06/16 at 20:59 Aspirin (Halfprin) 81 mg DAILY PO Last administered on 12/06/16 08:46; Admin Dose 81 MG; Start 12/01/16 at 18:00 Zolpidem Tartrate (Ambien) 5 mg HS PRN PO INSOMNIA Last administered on 20:29; Admin Dose 5 MG; Start 12/01/16 at 22:00 Methylprednisolone Sodium Succinate 40 mg 40 mg QAM IV Last administered on 12/06 08:46; Admin Dose 40 MG; Start 12/02/16 at 13:00 Vancomycin HCl/ Sodium Chloride (Vancocin/NS) 500 ml @ 125 mls/hr Q12H IVPB Last administered on 12/06/16 02:50; Admin Dose 125 MLS/HR; Start 12/05/16 at 15: 00 Patient Own Medication 1 ea DAILY@13 PO Last administered on 12/06/16 12:42; Admin Dose 1 EA; Start 12/05/16 at 13:00; Stop 12/11/16 at 09:01 Miscellaneous Information (*Rx Drug Level Order Reminder*) VANCOMYCIN TROUGH 12/07 AT 0200 ONCE ONCE XX ; Start 12/07/16 at 02:00; Stop 12/07/16 at 02:01 JENY MCKEON M.D. December 06, 2016 13:19
--- NOTE | 2016-12-06 13:48 | PN ---
Date/Time of Note Date/Time of Note DATE: 12/06/16 TIME: 13:46 Assessment/Plan VTE Prophylaxis VTE Prophylaxis Intervention: SCD's Lines/Catheters IV Catheter Type (from [facility]): Saline Lock Urinary Cath still in place: No Assessment/Plan Chief Complaint/Hosp Course Assessment/Plan - Sepsis secondary to bronchitis, continue broad-spectrum antibiotics and and Tamiflu, resolved. Dr. Maher is following an infection disease consultation. - Acute bronchitis, viral versus bacterial, continue breathing treatment oxygen supplementation. Patient is currently on vancomycin cefepime and Tamiflu. - Multiple myeloma, s/p stem cell transplant at [facility] s/p chemotherapy, and radiation therapy for the lower back. Patient is followed by Dr. Cole in hematology consultation. Further recommendations based on clinical course. Plan of care discussed with Dr. Mensah. Problems: Subjective 24 Hr Interval Summary Free Text/Dictation Patient denies shortness of breath, improvement with cough frequency, remains afebrile. Exam/Review of Systems Vital Signs Vitals Vital Signs Date Time Temp Pulse Resp B/P Pulse Ox O2 Delivery O2 Flow Rate FiO2 12/06/16 07:47 68 18 93 21 12/06/16 07:30 97.8 131/87 12/03/16 08:00 2.0 12/02/16 22:59 Nasal Cannula Intake and Output 12/05/16 12/05/16 12/06/16 15:00 23:00 07:00 Intake Total 50 ml 1070 ml 1220 ml Balance 50 ml 1070 ml 1220 ml Exam Constitutional: alert, oriented Psych: no complaints Head: atraumatic, normocephalic Eyes: nl conjunctiva ENMT: nl external ears & nose Neck: non-tender Respiratory: clear to auscultation, normal air movement Cardiovascular: nl pulses, regular rate and rhythm Gastrointestinal: non-tender, soft Musculoskeletal: nl extremities to inspection Extremities: normal pulses Neurological: CONTAINER FILLER II-XII intact Results Result Diagram: 12/05/16 0439 12/05/16 0439 Medications Medications Current Medications Acetaminophen (Tylenol Tab) 500 mg Q6H PRN PO PAIN AND OR ELEVATED TEMP Last administered on 12/01/16 14:55; Admin Dose 500 MG; Start 11/30/16 at 22:30 Famotidine (Pepcid) 20 mg BID PO Last administered on 12/06/16 08:46; Admin Dose 20 MG; Start 12/01/16 at 09:00 Enoxaparin Sodium (Lovenox) 40 mg DAILY SC Last administered on 12/06/16 08:47 ; Admin Dose 40 MG; Start 12/01/16 at 09:00 Guaifenesin/ Dextromethorphan 5 ml 5 ml Q4H PRN PO COUGH Last administered on 13:35; Admin Dose 5 ML; Start 11/30/16 at 22:30 Cefepime HCl 50 ml @ 100 mls/hr Q12 IVPB Last administered on 12/06/16 08:46; Admin Dose 100 MLS/HR; Start 12/01/16 at 21:00 Levofloxacin/ Dextrose (Levaquin 500mg/ D5W 100 ml (Pmx)) 100 ml @ 100 mls/hr Q24H IVPB Last administered on 12/05/16 13:31; Admin Dose 100 MLS/HR; Start 12/01/16 at 14:00 Oseltamivir Phosphate (Tamiflu) 75 mg BID PO Last administered on 12/06/16 08: 46; Admin Dose 75 MG; Start 12/01/16 at 21:00; Stop 12/06/16 at 20:59 Aspirin (Halfprin) 81 mg DAILY PO Last administered on 12/06/16 08:46; Admin Dose 81 MG; Start 12/01/16 at 18:00 Zolpidem Tartrate (Ambien) 5 mg HS PRN PO INSOMNIA Last administered on 20:29; Admin Dose 5 MG; Start 12/01/16 at 22:00 Methylprednisolone Sodium Succinate 40 mg 40 mg QAM IV Last administered on 12/06 08:46; Admin Dose 40 MG; Start 12/02/16 at 13:00 Vancomycin HCl/ Sodium Chloride (Vancocin/NS) 500 ml @ 125 mls/hr Q12H IVPB Last administered on 12/06/16 02:50; Admin Dose 125 MLS/HR; Start 12/05/16 at 15: 00 Patient Own Medication 1 ea DAILY@13 PO Last administered on 12/06/16 12:42; Admin Dose 1 EA; Start 12/05/16 at 13:00; Stop 12/11/16 at 09:01 Miscellaneous Information (*Rx Drug Level Order Reminder*) VANCOMYCIN TROUGH 12/07 AT 0200 ONCE ONCE XX ; Start 12/07/16 at 02:00; Stop 12/07/16 at 02:01 ASAF HARKINS December 06, 2016 13:48
[2016-12-06] MEDS: LEVOFLOXACIN 500MG/D5W (PMX) 100 ML IVPB SCH (16:02)
--- NOTE | 2016-12-06 20:20 | CONS ---
Date/Time of Note Date/Time of Note DATE: 12/06/16 TIME: 20:19 Assessment/Plan Assessment/Plan Chief Complaint/Hosp Course - sepsis due to bronchitis or superimposed bacterial pneumonia, improved - sick contact prior to the onset of illness suggests viral origin - STEIN possibly secondary to viral syndrome. improved - immunocompromised state due to multiple myeloma plus lenalidomide - multiple myeloma s/p stem cell transplant at [facility] s/p chemotherapy, and radiation therapy for the lower back. recommendations: - f/u pending labs - De-escalate abx and discontinue IV vancomycin - continue cefepime and levofloxacin - Pt completed 5 day course of oseltamivir (12/01/2016-) today. - droplet precautions until respiratory viruses are ruled out by PCR Management d/w Pt, RN, and Dr. Raymond Problems: Consultation Date/Type/Reason Admit Date/Time November 30, 2016 at 14:40 Initial Consult Date 12/01/16 Type of Consultation: Infectious Disease Referring Provider: BEV SPARKS MD 24 HR Interval Summary Free Text/Dictation No new issues per d/w [facility]NG Parker. Pt reports has decreased productive cough with whitish phlegm. Denies pain, SOB, n/v/d, dysuria. Exam/Review of Systems Vital Signs Vitals Vital Signs Date Time Temp Pulse Resp B/P Pulse Ox O2 Delivery O2 Flow Rate FiO2 12/06/16 17:13 80 18 21 12/06/16 07:47 93 12/06/16 07:30 97.8 131/87 12/03/16 08:00 2.0 12/02/16 22:59 Nasal Cannula Intake and Output 12/05/16 12/05/16 12/06/16 15:00 23:00 07:00 Intake Total 50 ml 1070 ml 1220 ml Balance 50 ml 1070 ml 1220 ml Exam Constitutional: alert, oriented, other (eating a sandwhich), well developed Psych: nl mood/affect Head: atraumatic, normocephalic Eyes: nl sclera Neck: supple, No jvd Respiratory: clear to auscultation, normal air movement Cardiovascular: nl pulses, regular rate and rhythm Gastrointestinal: non-tender, soft Musculoskeletal: nl extremities to inspection Extremities: normal pulses, No clubbing, No cyanosis, No edema Neurological: nl mental status, nl speech, No focal weakness Skin: nl turgor Results Result Diagram: 12/05/169 12/05/169 Medications Medications Current Medications Acetaminophen (Tylenol Tab) 500 mg Q6H PRN PO PAIN AND OR ELEVATED TEMP Last administered on 12/01/16 14:55; Admin Dose 500 MG; Start 11/30/16 at 22:30 Famotidine (Pepcid) 20 mg BID PO Last administered on 12/06/16 08:46; Admin Dose 20 MG; Start 12/01/16 at 09:00 Enoxaparin Sodium (Lovenox) 40 mg DAILY SC Last administered on 12/06/16 08:47 ; Admin Dose 40 MG; Start 12/01/16 at 09:00 Guaifenesin/ Dextromethorphan 5 ml 5 ml Q4H PRN PO COUGH Last administered on 13:35; Admin Dose 5 ML; Start 11/30/16 at 22:30 Cefepime HCl 50 ml @ 100 mls/hr Q12 IVPB Last administered on 12/06/16 08:46; Admin Dose 100 MLS/HR; Start 12/01/16 at 21:00 Levofloxacin/ Dextrose (Levaquin 500mg/ D5W 100 ml (Pmx)) 100 ml @ 100 mls/hr Q24H IVPB Last administered on 12/06/16 16:02; Admin Dose 100 MLS/HR; Start 12/01/16 at 14:00 Oseltamivir Phosphate (Tamiflu) 75 mg BID PO Last administered on 12/06/16 08: 46; Admin Dose 75 MG; Start 12/01/16 at 21:00; Stop 12/06/16 at 20:59 Aspirin (Halfprin) 81 mg DAILY PO Last administered on 12/06/16 08:46; Admin Dose 81 MG; Start 12/01/16 at 18:00 Zolpidem Tartrate (Ambien) 5 mg HS PRN PO INSOMNIA Last administered on 20:29; Admin Dose 5 MG; Start 12/01/16 at 22:00 Methylprednisolone Sodium Succinate 40 mg 40 mg QAM IV Last administered on 12/06 08:46; Admin Dose 40 MG; Start 12/02/16 at 13:00 Vancomycin HCl/ Sodium Chloride (Vancocin/NS) 500 ml @ 125 mls/hr Q12H IVPB Last administered on 12/06/16 18:31; Admin Dose 125 MLS/HR; Start 12/05/16 at 15: 00 Patient Own Medication 1 ea DAILY@13 PO Last administered on 12/06/16 12:42; Admin Dose 1 EA; Start 12/05/16 at 13:00; Stop 12/11/16 at 09:01 Miscellaneous Information (*Rx Drug Level Order Reminder*) VANCOMYCIN TROUGH 12/07 AT 0200 ONCE ONCE XX ; Start 12/07/16 at 02:00; Stop 12/07/16 at 02:01 Procedures Procedures CXR 12/04/16: Subsegmental atelectasis at the lung bases. Hypoinflated lungs with elevation of the right hemidiaphragm. MARIALUISA PENNINGTON NP December 06, 2016 20:20 MARIALUISA PENNINGTON NP December 06, 2016 20:20
[2016-12-06 21:12] VITALS: BP 130/69; RESP 18
[2016-12-07 02:23] LABS: ADD SCAN DIFF NO
[2016-12-07 02:25] LABS: BASOPHILS % 0.5 % (0.0-2.0); EOSINOPHILS # 0.1 10^3/ul (0.0-0.5); EOSINOPHILS % 1.2 % (0.0-7.0); HEMATOCRIT 37.5 % (42.0-52.0); HEMOGLOBIN 12.7 g/dl (14.0-18.0); LYMPHOCYTES # 1.8 10^3/ul (0.8-2.9); LYMPHOCYTES % 24.7 % (15.0-51.0); MEAN CORPUSCULAR HEMOGLOBIN 33.1 pg (29.0-33.0); MEAN CORPUSCULAR HGB CONC 33.9 g/dl (32.0-37.0); MEAN CORPUSCULAR VOLUME 97.7 fl (82.0-101.0); MEAN PLATELET VOLUME 9.5 fl (7.4-10.4); MONOCYTES % 13.4 % (0.0-11.0); NEUTROPHIL # 4.3 10^3/ul (1.6-7.5); NEUTROPHILS % 57.2 % (39.0-77.0); PLATELET COUNT 259 10^3/UL (140-415); RED BLOOD COUNT 3.84 10^6/ul (4.70-6.10); RED CELL DISTRIBUTION WIDTH 12.6 % (11.5-14.5); WHITE BLOOD COUNT 7.5 10^3/ul (4.8-10.8)
[2016-12-07 02:40] LABS: POTASSIUM 3.7 mmol/L (3.5-5.1)
[2016-12-07 02:43] LABS: CREATININE 0.72 mg/dl (0.61-1.24)
[2016-12-07 02:44] LABS: CALCIUM 8.9 mg/dl (8.4-10.2)
[2016-12-07] MEDS: VANCOMYCIN 1.75 GM in NS 500 ML IVPB SCH (03:05)
[2016-12-07] MEDS: LEVALBUTEROL (NEB) 0.63 MG/3 ML AMP HHN SCH ×2 (08:09→14:00)
[2016-12-07 08:21] VITALS: BP 132/87; RESP 18
[2016-12-07] MEDS: CEFEPIME 2GM/50 ML (PMX) 50 ML IVPB SCH (09:32)
[2016-12-07] MEDS: METHYLPREDNISOLONE 40 MG INJ IV SCH (09:32)
[2016-12-07] MEDS: FAMOTIDINE 20 MG TAB PO SCH (09:33)
[2016-12-07] MEDS: ASPIRIN (EC) 81 MG TAB PO SCH (09:33)
[2016-12-07] MEDS: ENOXAPARIN 40 MG/0.4 ML SYG SC SCH (09:40)
[2016-12-07] MEDS: GUAIFENESIN/DM 5ML CUP PO PRN (09:57)
[2016-12-07] MEDS: LENALIDOMIDE PO SCH (13:47)
[2016-12-07] MEDS: LEVOFLOXACIN 500MG/D5W (PMX) 100 ML IVPB SCH (13:52)
--- NOTE | 2016-12-07 15:51 | CONS ---
Date/Time of Note Date/Time of Note DATE: 12/07/16 TIME: 15:48 Assessment/Plan Assessment/Plan Chief Complaint/Hosp Course - sepsis due to bronchitis or superimposed bacterial pneumonia, improved - sick contact prior to the onset of illness suggests viral origin - STEIN possibly secondary to viral syndrome. improved - immunocompromised state due to multiple myeloma plus lenalidomide - multiple myeloma s/p stem cell transplant at [facility] s/p chemotherapy, and radiation therapy for the lower back. recommendations: - levofloxacin; last day tmrw - Pt completed 5 day course of oseltamivir (12/01/2016-) yest - ok for d/c from id standpoint Problems: Consultation Date/Type/Reason Admit Date/Time November 30, 2016 at 14:40 Initial Consult Date 12/01/16 Type of Consultation: Infectious Disease Referring Provider: BEV SPARKS MD 24 HR Interval Summary Free Text/Dictation improving slowly. anxious to return home. Exam/Review of Systems Vital Signs Vitals Vital Signs Date Time Temp Pulse Resp B/P Pulse Ox O2 Delivery O2 Flow Rate FiO2 12/07/16 14:00 80 20 94 21 12/07/16 08:21 97.9 132/87 12/03/16 08:00 2.0 Intake and Output 12/06/16 12/06/16 12/07/16 15:00 23:00 07:00 Intake Total 50 ml 1450 ml 770 ml Balance 50 ml 1450 ml 770 ml Exam Constitutional: alert, oriented, well developed Psych: nl mood/affect, no complaints Head: atraumatic, normocephalic ENMT: nl external ears & nose, nl lips & teeth, nl nasal mucosa & septum Respiratory: clear to auscultation, normal air movement Cardiovascular: nl pulses, regular rate and rhythm Gastrointestinal: nl liver, spleen, non-tender, soft Neurological: COLORIST II-XII intact, nl mental status, nl speech, nl strength Results Result Diagram: 12/07/16 02012/07/16 020 Results 24 hrs Laboratory Tests Test 12/07/16 02:05 12/07/16 07:44 White Blood Count 7.5 Red Blood Count 3.84 L Hemoglobin 12.7 L Hematocrit 37.5 L Mean Corpuscular Volume 97.7 Mean Corpuscular Hemoglobin 33.1 H Mean Corpuscular Hemoglobin Concent 33.9 Red Cell Distribution Width 12.6 Platelet Count 259 Mean Platelet Volume 9.5 Neutrophils % 57.2 Lymphocytes % 24.7 Monocytes % 13.4 H Eosinophils % 1.2 Basophils % 0.5 Nucleated Red Blood Cells % 0.0 Neutrophils # 4.3 Lymphocytes # 1.8 Monocytes # 1.0 H Eosinophils # 0.1 Basophils # 0.0 Nucleated Red Blood Cells # 0.0 Sodium Level 140 Potassium Level 3.7 Chloride Level 105 Carbon Dioxide Level 26 Anion Gap 13 Blood Urea Nitrogen 13 Creatinine 0.72 Glucose Level 129 Calcium Level 8.9 Vancomycin Level Trough 16.0 Lab Scanned Report REFERENCE LAB Medications Medications Current Medications Acetaminophen (Tylenol Tab) 500 mg Q6H PRN PO PAIN AND OR ELEVATED TEMP Last administered on 12/01/16 14:55; Admin Dose 500 MG; Start 11/30/16 at 22:30 Famotidine (Pepcid) 20 mg BID PO Last administered on 12/07/16 09:33; Admin Dose 20 MG; Start 12/01/16 at 09:00 Enoxaparin Sodium (Lovenox) 40 mg DAILY SC Last administered on 12/07/16 09:40 ; Admin Dose 40 MG; Start 12/01/16 at 09:00 Guaifenesin/ Dextromethorphan 5 ml 5 ml Q4H PRN PO COUGH Last administered on 09:57; Admin Dose 5 ML; Start 11/30/16 at 22:30 Cefepime HCl 50 ml @ 100 mls/hr Q12 IVPB Last administered on 12/07/16 09:32; Admin Dose 100 MLS/HR; Start 12/01/16 at 21:00 Levofloxacin/ Dextrose (Levaquin 500mg/ D5W 100 ml (Pmx)) 100 ml @ 100 mls/hr Q24H IVPB Last administered on 12/07/16 13:52; Admin Dose 100 MLS/HR; Start 12/01/16 at 14:00 Aspirin (Halfprin) 81 mg DAILY PO Last administered on 12/07/16 09:33; Admin Dose 81 MG; Start 12/01/16 at 18:00 Zolpidem Tartrate (Ambien) 5 mg HS PRN PO INSOMNIA Last administered on 20:29; Admin Dose 5 MG; Start 12/01/16 at 22:00 Methylprednisolone Sodium Succinate (Solu-Medrol) 40 mg QAM IV Last administered on 12/07/16 09:32; Admin Dose 40 MG; Start 12/02/16 at 13:00 Patient Own Medication 1 ea DAILY@13 PO Last administered on 12/07/16 13:47; Admin Dose 1 EA; Start 12/05/16 at 13:00; Stop 12/11/16 at 09:01 LASHONDA GERARD MD December 07, 2016 15:51
[2016-12-07] MEDS ORDERED: LEVO500T72 PO (18:37)
[2016-12-19] MEDS ORDERED: PATIENT'S OWN MEDICATION PO SCH (09:00)
== END 2016-12-07 20:03 | disposition home or self-care (01) | DRG 872 ==
LOC: E/R 11:54 → OBSVTOIN 14:40 → PP2 14:40 → INTOOBSV 14:40 → PP2 21:30
PROVIDERS: ADMIT Internal Medicine; ATTEND Internal Medicine
DX: A41.89 Other specified sepsis (principal); C90.01 Multiple myeloma in remission; F17.200 Nicotine dependence, unspecified, uncomplicated; Z79.899 Other long term (current) drug therapy; R51 Headache; B34.9 Viral infection, unspecified; J11.1 Influenza due to unidentified influenza virus with other respiratory manifestations; J20.8 Acute bronchitis due to other specified organisms; R65.20 Severe sepsis without septic shock
CPT/HCPCS: 36415; 36600; 71010; 71275; 80048; 80053; 80202; 81001; 81003; 82565; 82803; 83605; 84484; 84520; 85025; 85610; 85730; 86480; 86635; 86641; 86738; 86850; 86900; 86901; 87040; 87070; 87081; 87086; 87275; 87276; 87279; 87280; 87400; 87449; 87502; 93005; 94640; 94664; 96374; 96375; J0692; J0696; J1650; J1885; J1956; J2060; J2270; J2765; J2920; J3370; J7030; J7040; J7050; Q9967

== ENCOUNTER 2017-07-30 10:20 | Emergency (ER) | END 2017-07-30 13:55 | disposition home or self-care (01) ==